=== PATIENT | male | born 1980 | race Caucasian/White ===

== ENCOUNTER → 2020-07-20 | Outpatient (CLI) | payer OTHER ==
--- NOTE | 2020-07-20 12:03 | CONS ---
CONSULTATION DATE OF SERVICE: 07/20/2020 This 40-year-old gentleman has been evaluated in [facility] for possible obstructive sleep apnea-hypopnea syndrome. HISTORY OF PRESENT ILLNESS SLEEP-WAKE EVALUATION: Patient's usual sleep schedule on weekdays from 9 a.m. until 5 p.m. and on weekends from 9 p.m. until . 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 During the day, he takes from one to three naps usually early afternoon. Does not feel refreshed after nap. Does not see vivid dreams. He wakes up from sleep up to seven times. He has 3 episodes of nocturia. According to his , he snores and has witnessed episodes of stopped breathing during the sleep. [place] Sleepiness Scale significantly increased to 12. PAST MEDICAL HISTORY: Positive for acid reflux and back problems. PAST SURGICAL HISTORY: Cholecystectomy. MEDICATIONS: Baclofen 20 mg 3 times a day, omeprazole 40 mg once a day, 150 mg once a day, Chantix 1 mg, ibuprofen 800 mg up to 3 times a day. SOCIAL HISTORY: Negative for using alcohol. Positive for smoking about one pack a day for 25 years, trying to quit. FAMILY HISTORY: Heart problems, arthritis, snoring, cancer, thyroid problems, acid reflux. REVIEW OF SYSTEMS: Multiple awakenings from sleep, sleepiness, snoring. PHYSICAL EXAMINATION: GENERAL: gentleman without distress. VITAL SIGNS: BP 144/89, HR 98, RR 15, height 6 inches 0 inches, weight 285 pounds, BMI 38.6, temperature 98.4, oxygen saturation at room air 98%. HEENT: PERRLA, EOMI. Oropharynx extremely low position of soft palate. Mallampati 4. NECK: Wide neck 18-1/2 inches in circumference. LUNGS: Clear to percussion and to auscultation. Good air exchange. No wheezing or rhonchi. HEART: S1, S2 regular. No murmurs, gallops, or rubs. ABDOMEN: Obese. EXTREMITIES: No clubbing or cyanosis. METAL FABRICATOR: Awake, alert, and oriented X3. Cranial nerves 2 to 7 intact. There is no fasciculation or atrophy. noted. No focal deficits observed. IMPRESSION: 1. Snoring witnessed episodes of stopped breathing during sleep, extremely low position of soft palate, Mallampati 4, wide neck 18-1/2 inches in circumference, sleepiness, obstructive sleep apnea-hypopnea syndrome. 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 3. History of acid reflux. 4. Back problems. 5. Status post cholecystectomy. PLAN: 1. Polysomnography for evaluation of patient's breathing during sleep. 2. CPAP/BiPAP titration if sleep study confirms obstructive sleep apnea-hypopnea syndrome. 3. Preferable position during sleep on the side. 4. No driving if patient feels any sleepiness. 5. I will see patient for follow up visit to explain results of testing and following plan. Thank you very much for referring this patient for consultation. Sincerely, Christopher Gibbs MD, PhD, FAASM Diplomat of [place] [employer] [employer] Teletypesetter Monitor of [facility] [place] MMODL / IJN: [id number] /
== END | disposition home or self-care (01) ==
LOC: SLEEP 10:48
PROVIDERS: ATTEND Internal Medicine
DX: G47.33 Obstructive sleep apnea (adult) (pediatric) (principal); M43.9 Deforming dorsopathy, unspecified; Z87.19 Personal history of other diseases of the digestive system; Z79.891 Long term (current) use of opiate analgesic; Z79.899 Other long term (current) drug therapy; Z90.49 Acquired absence of other specified parts of digestive tract
CPT/HCPCS: 99211

== ENCOUNTER 2020-08-01 07:00 | Outpatient (CLI) | payer OTHER ==
--- NOTE | 2020-08-03 22:45 | SLS ---
SLEEP STUDY POLYSOMNOGRAPHY REPORT: CLINICAL: Polysomnography has been done for evaluation of the patient's breathing during sleep. PROCEDURE: The standard montage for clinical polysomnography included the electroencephalogram, the electroculogram, the mentalis surface electromyography and Lead II cardiography. The respiratory battery consisted of measurements of nasal/buccal air flow, pressure transducer measurements from nose, thoracic, and/or abdominal effort and intercostal surface electromyography. Video monitoring has been done to check for any parasomnia events. Nocturnal oxyhemoglobin saturations were obtained by finger oximetry. RESULTS: During diagnostic sleep study, sleep efficiency was practically normal at 87%. Latency to sleep onset was short at 2.8 minutes. Latency to first REM period also was normal. Sleep architecture showed increasing stage N1 to 18.4%, short delta sleep of 2.8% and normal amount of REM sleep at 20.3%. Respiratory channel showed 26 obstructive apneas, one mixed apnea, one central apnea, and 241 hypopneas, with total apnea-hypopnea index 43.3 with oxygen desaturation to 78.9%. Total oxygen level was below or equal to 88% for 10.1 minutes. Pulse rate was in the range between 49 and 101 by computer calculation. No periodic limb movements have been documented. IMPRESSION: 1. Severe obstructive sleep apnea-hypopnea syndrome. 2. No significant periodic limb movements have been documented. 3. Significant oxygen desaturation. Please see other impressions from consultation. PLAN: 1. Titration with positive air pressure for correction of respiratory abnormalities during sleep. 2. Losing weight. 3. Sleep hygiene with regular time in bed for at least 8 hours. 4. No driving if feeling sleepiness. Thank you very much for allowing me to participate in the management of your patient. Sincerely, Christopher Gibbs MD, PhD, FAASM Diplomat of [place] [employer] [employer] Plans Examiner of [facility] [place] MMODL / IJN: [id number] /
== END 2020-08-01 16:00 | disposition home or self-care (01) ==
LOC: SLEEP 07:00
PROVIDERS: ATTEND Internal Medicine
DX: G47.33 Obstructive sleep apnea (adult) (pediatric) (principal)
CPT/HCPCS: 95810

== ENCOUNTER → 2022-01-31 | Outpatient (CLI) | payer OTHER ==
--- NOTE | 2022-01-31 14:34 | P.PN ---
Subjective DATE: 01/31/2022 FOLLOW UP VISIT. Patient with obstructive sleep apnea hypopnea syndrome return to sleep center for follow-up visit. Patient had sleep study which documented severe obstructive sleep apnea hypopnea syndrome. Patient was initiated on PAP therapy and today is first visit after treatment was started. Patient has difficulties with the usage of CPAP equipment. When he uses it he still continued to have a awakenings from sleep. [place] sleepiness scale is in a very high range 20 to. I checked information from PAP unit. This is dream station 1 unit from [employer], which is on recall. PAP unit pressure 5-17 cm H2O. patient was not able to use Pap equipment. MEDICATIONS:1. Ambien 10 mg once a day 2. Omeprazole 40 mg once a day 3. Baclofen 20 mg as needed During physical exam: GENERAL: A pleasant patient without any distress. VITAL SIGNS: BP 179/99, HR 99, RR 16, weight 318.0, temperature 97.6, oxygen saturation at room air 98%. HEENT: PERRLA, EOMI.low position of soft palate, Mallapati 4 . NECK: Supple. No JVD. LUNGS: Clear to percussion and to auscultation. Good air exchange. No wheezing or rhonchi. HEART: S1, S2 regular. ABDOMEN: Soft and nontender. Obese EXTREMITIES: No clubbing or cyanosis. SPINDLE CARVER: Awake, alert, and oriented x3. No focal deficit. Impressions: 1. Obstructive sleep apnea-hypopnea syndrome in severe range apnea-hypopnea index 43.3.. Patient did not use she is CPAP unit recently. He continued to diaz ve multiple awakenings from sleep with using Pap equipment. His CPAP unit is on recall 2. Obesity. 3. Back problems. 4. Acid reflux. 5. Hypertension in the office. 6. Status post cholecystectomy. 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 Plan: 1. Pap titration for evaluation of effective pressure for correction of respiratory abnormalities during sleep. Patient has difficulties with usage of auto Pap, continued to have multiple awakenings from sleep. 2. Pap unit is on recall, needs to be replaced. 3. Follow up visit after Pap titration. 4. Watching and losing weight. 5. Sleep hygiene with regular time in bed for at least 8 hours. 6. Precautions related to driving. No driving if feel any sleepiness. Thank you very much for allowing me to participate in the management of your patient. Christopher Gibbs MD, PhD, FAASM. Diplomat of [place] [employer], Sleep Medicine Board by [place] [employer] Tinsmith Helper of [facility] [place]
== END ==
LOC: SLEEP 13:03
PROVIDERS: ATTEND Internal Medicine
DX: G47.33 Obstructive sleep apnea (adult) (pediatric) (principal); E66.9 Obesity, unspecified; M53.80 Other specified dorsopathies, site unspecified; K21.9 Gastro-esophageal reflux disease without esophagitis; I10 Essential (primary) hypertension; Z90.49 Acquired absence of other specified parts of digestive tract; Z99.89 Dependence on other enabling machines and devices
CPT/HCPCS: 99212

== ENCOUNTER 2023-03-17 21:18 | Inpatient (IN) | payer OTHER ==
[2023-03-17] MEDS ORDERED: SODIUM CHLORIDE 0.9% 1,000 ML IV STA (21:35)
--- NOTE | 2023-03-17 21:35 | ED ---
Abdominal Pain HPI - General Chief Complaint: Abdominal Pain Stated Complaint: Diverticulitis Time Seen by Provider: 03/17/23 21:20 Source: patient, EMS Mode of arrival: EMS Limitations: no limitations - History of Present Illness Initial Comments: Sharif is a 43 yo M who presents to the ER as a transfer from [place] for diverticulitis. Patient reports that he developed lower abdominal pain on , he's not had a bowel movement since that time he is still passing gas. Pain is progressively worse and today became unbearable he sought care at [facility] emergency Department were blood work and CT imaging were performed. Blood work revealed leukocytosis with white count 14.[address] revealed sigmoid diverticulitis with perforation and moderate amount of air tracking around the lower abdomen. She was given Zosyn his pain was managed with morphine and Dilaudid he was transferred here for surgical evaluation. - Related Data Home Medications Medication Instructions Recorded Confirmed Acetaminophen Tab [Tylenol Tab] 1,000 mg PO Q6HR PRN 03/17/23 03/17/23 Atorvastatin [Lipitor] 40 mg PO DAILY 03/17/23 03/17/23 Baclofen 10 mg PO TID PRN 03/17/23 03/17/23 Ibuprofen [Motrin] 800 mg PO TID-W/MEALS PRN 03/17/23 03/17/23 Omeprazole 40 mg PO DAILY 03/17/23 03/17/23 Varenicline Tartrate 1 mg PO BID 03/17/23 03/17/23 lisinopriL [Zestril] 5 mg PO DAILY 03/17/23 03/17/23 Allergies Allergy/AdvReac Type Severity Reaction Status Date / Time No Known Allergies Allergy Verified 03/17/23 21:56 Review of Systems ROS Statement: Those systems with pertinent positive or pertinent negative responses have been documented in the HPI. ROS Other: All systems not noted in ROS Statement are negative. Past Medical History Past Medical History: No Reported History Past Surgical History: Cholecystectomy Smoking Status: Current every day smoker Past Alcohol Use History: Rare Past Drug Use History: None Reported General Exam - General Exam Comments Initial Comments: Physical Exam GENERAL: Obese, appears uncomfortable HENT: Normocephalic, Atraumatic. EYES: PERRL, EOMI PULMONARY: Unlabored respirations. No audible rales rhonchi or wheezing was noted. CARDIOVASCULAR: Tachycardic, regular ABDOMEN: Distended, tender in LLQ SKIN: Skin is clear with no lesions or rashes and otherwise unremarkable. : Deferred NEUROLOGIC: Patient is alert and oriented x3 Moving all extremities spontaneously MUSCULOSKELETAL: Normal extremities with adequate strength and full range of motion. No lower extremity swelling or edema. No calf tenderness. PSYCHIATRIC: Normal psychiatric evaluation. Limitations: no limitations Course Vital Signs 03/17/23 21:21 Temperature 98.6 F Pulse Rate 110 H Respiratory 18 Rate Blood Pressure 139/88 O2 Sat by Pulse 97 Oximetry Medical Decision Making - Medical Decision Making Patient was seen and evaluated upon arrival. Patient is resting comfortably only complaint is thirst Outside labs and imaging were reviewed imaging was uploaded to our system Repeat labs were ordered in anticipation of a large Patient IV fluids, nothing by mouth diet and pain management ordered Patient care was discussed with Dr. Perez who agrees with plan for pain management observation overnight and surgical evaluation the morning Was pt. sent in by a medical professional or institution (, PA, DIABETES TERRITORY MANAGER, urgent care, hospital, or assisted...) When possible be specific @ -Yes, sent from [facility] Did you speak to anyone other than the patient for history (EMS, parent, family, police, friend...)? What history was obtained from this source @ -EMS Did you review nursing and triage notes (agree or disagree)? Why? @ -I reviewed and agree with nursing and triage notes Were old charts reviewed (outside hosp., previous admission, EMS record, old EKG, old radiological studies, urgent care reports/EKG's, assisted records)? Report findings @ -Chart from outside hospital was reviewed Differential Diagnosis (chest pain, altered mental status, abdominal pain women, abdominal pain men, vaginal bleeding, weakness, fever, dyspnea, syncope, headache, dizziness, GI bleed, back pain, seizure, CVA, palpatations, mental health, musculoskeletal)? @ -not applicable EKG interpreted by me (3pts min.). @ -As above X-rays interpreted by me (1pt min.). @ -None done CT interpreted by me (1pt min.). @ -Outside CT was reviewed as diverticulitis with moderate free air U/S interpreted by me (1pt. min.). @ -None done What testing was considered but not performed or refused? (CT, X-rays, U/S, labs)? Why? @ -None What meds were considered but not given or refused? Why? @ -None Did you discuss the management of the patient with other professionals (professionals i.e. , PA, DIABETES TERRITORY MANAGER, lab, RT, psych nurse, certified social workers in health care, door hanger, teacher, public affairs officer, classification case manager)? Give summary @ -Discussed with admitting physician Was smoking cessation discussed for >3mins.? @ -No Was critical care preformed (if so, how long)? @ -No Were there social determinants of health that impacted care today? How? (Homelessness, low income, unemployed, alcoholism, drug addiction, transportation, low edu. Level, literacy, decrease access to med. care, group home, rehab)? @ -No Was there de-escalation of care discussed even if they declined (Discuss DNR or withdrawal of care, Hospice)? DNR status @ -No What co-morbidities impacted this encounter? (DM, HTN, Smoking, COPD, CAD, Cancer, CVA, ARF, Chemo, Hep., AIDS, mental health diagnosis, sleep apnea, morbid obesity)? @ -None Was patient admitted / discharged? Hospital course, mention meds given and route, prescriptions, significant lab abnormalities, going to OR and other pertinent info. @ -Admit Undiagnosed new problem with uncertain prognosis? @ -No Drug Therapy requiring intensive monitoring for toxicity (Heparin, Nitro, Insulin, Cardizem)? @ -No Were any procedures done? @ -No Diagnosis/symptom? @ -Sigmoid diverticulitis with perforation Acute, or Chronic, or Acute on Chronic? @ -Acute Uncomplicated (without systemic symptoms) or Complicated (systemic symptoms)? @ -Complicated Side effects of treatment? @ -No Exacerbation, Progression, or Severe Exacerbation? @ -No Poses a threat to life or bodily function? How? (Chest pain, [place], [place], pneumonia, PE, COPD, DKA, ARF, appy, cholecystitis, CVA, Diverticulitis, Homicidal, Suicidal, threat to staff... and all critical care pts) @ -Can lead to sepsis and - Lab Data Lab Results 03/17/23 Range/Units 21:45 Blood Type Recheck No Previous Record Bld Type Recheck Status CABO Indicated Spec Expiration Date 03/20/2023 - 2344 Disposition Clinical Impression: Perforation of sigmoid colon due to diverticulitis Disposition: ADMITTED IP TO THIS HOSP Condition: Stable Is patient prescribed a controlled substance at d/c from ED?: No Referrals: Zev Cabral MD [Primary Care Provider] - 1-2 days
[2023-03-17] MEDS ORDERED: NALOXONE 0.4 MG/ML 1 ML VIAL IV PRN (22:09)
[2023-03-17] MEDS ORDERED: ONDANSETRON 4 MG/2 ML VIAL IVP PRN (22:09)
[2023-03-17] MEDS: HYDROmorphone 1 MG/ML 1 ML SYRINGE IVP PRN (22:21)
[2023-03-17] MEDS: PANTOPRAZOLE 40 MG/10 ML VIAL IV SCH (22:21)
[2023-03-17 22:27] LABS: Basophils # (A) 0.1 k/uL (0-0.2); Basophils % (A) 0 %; Eosinophils # (A) 0.1 k/uL (0-0.7); Eosinophils % (A) 1 %; HCT 39.8 % (39.0-53.0); HGB 13.8 gm/dL (13.0-17.5); Lymphocytes # (A) 2.8 k/uL (1.0-4.8); Lymphocytes % (A) 21 %; MCH 32.1 pg (25.0-35.0); MCHC 34.7 g/dL (31.0-37.0); MCV 92.5 fL (80.0-100.0); Mean Platelet Volume 7.4; Monocytes # (A) 1.1 k/uL (0-1.0); Monocytes % (A) 8 %; Neutrophils # (A) 9.1 k/uL (1.3-7.7); Neutrophils % (A) 68 %; Platelet Count 256 k/uL (150-450); RBC 4.31 m/uL (4.30-5.90); RDW 12.7 % (11.5-15.5); WBC 13.5 k/uL (3.8-10.6)
[2023-03-17 22:42] LABS: ALT 42 U/L (4-49); AST 35 U/L (17-59); African American GFR (CKD) >90 (>60 ml/min/1.73 sqM); Albumin 3.2 g/dL (3.5-5.0); Alkaline Phosphatase 73 U/L (38-126); Anion Gap 9 mmol/L; Blood Urea Nitrogen 9 mg/dL (9-20); Calcium 8.4 mg/dL (8.4-10.2); Carbon Dioxide 22 mmol/L (22-30); Chloride 106 mmol/L (98-107); Glucose 111 mg/dL (74-99); Non-African American GFR(CKD) >90 (>60 ml/min/1.73 sqM); Potassium 3.7 mmol/L (3.5-5.1); Sodium 137 mmol/L (137-145); Total Bilirubin 1.4 mg/dL (0.2-1.3); Total Protein 6.2 g/dL (6.3-8.2)
[2023-03-18] MEDS: HYDROmorphone 1 MG/ML 1 ML SYRINGE IVP PRN ×5 (04:33→21:00)
[2023-03-18] MEDS: PANTOPRAZOLE 40 MG/10 ML VIAL IV SCH (08:29)
[2023-03-18] MEDS ORDERED: ACETAMINOPHEN IV (For NPO) 1,000 MG in EMPTY BAG 1 BAG IVPB PRN (08:45)
[2023-03-18] MEDS: SODIUM CHLORIDE 0.9% 1,000 ML IV SCH ×2 (08:58→19:00)
[2023-03-18] MEDS: PIPERACILLIN-TAZOBACTAM 3.375 GM in SODIUM CHLORIDE 0.9% 100 ML IVPB SCH ×2 (09:22→16:09)
[2023-03-18 10:06] LABS: ALT 39 U/L (4-49); AST 24 U/L (17-59); African American GFR (CKD) >90 (>60 ml/min/1.73 sqM); Albumin 3.2 g/dL (3.5-5.0); Albumin/Globulin Ratio 1.1; Alkaline Phosphatase 70 U/L (38-126); Anion Gap 10 mmol/L; Blood Urea Nitrogen 11 mg/dL (9-20); Calcium 8.2 mg/dL (8.4-10.2); Carbon Dioxide 21 mmol/L (22-30); Chloride 103 mmol/L (98-107); Globulin 2.9 g/dL; Glucose 126 mg/dL (74-99); Non-African American GFR(CKD) >90 (>60 ml/min/1.73 sqM); Potassium 3.7 mmol/L (3.5-5.1); Sodium 134 mmol/L (137-145); Total Bilirubin 1.3 mg/dL (0.2-1.3); Total Protein 6.1 g/dL (6.3-8.2)
[2023-03-18 10:15] LABS: Basophils % (A) 0 %; Eosinophils # (A) 0.1 k/uL (0-0.7); Eosinophils % (A) 1 %; HCT 38.2 % (39.0-53.0); HGB 12.9 gm/dL (13.0-17.5); Lymphocytes # (A) 2.1 k/uL (1.0-4.8); Lymphocytes % (A) 16 %; MCH 31.7 pg (25.0-35.0); MCHC 33.8 g/dL (31.0-37.0); MCV 93.7 fL (80.0-100.0); Mean Platelet Volume 7.5; Monocytes # (A) 1.2 k/uL (0-1.0); Monocytes % (A) 9 %; Neutrophils # (A) 9.3 k/uL (1.3-7.7); Neutrophils % (A) 72 %; Platelet Count 231 k/uL (150-450); RBC 4.08 m/uL (4.30-5.90); RDW 12.7 % (11.5-15.5)
[2023-03-18] MEDS ORDERED: BACLOFEN 10 MG TAB PO PRN (12:09)
--- NOTE | 2023-03-18 13:00 | P.GSHP ---
History of Present Illness H&P Date: 03/18/23 CHIEF COMPLAINT: Abdominal pain HISTORY OF PRESENT ILLNESS: This is a 43-year-old male who presented to [facility] with complaints of left lower quadrant abdominal pain that started 4 days ago. He had a computed tomography scan completed at the facility that reported acute sigmoid diverticulitis complicated by perforation and tracking mesenteric free air in the adjacent lower abdomen. No abscess formation. Patient was therefore transferred to [facility] for surgical evaluation. Patient denies any prior history of diverticulitis. He does have a family history of diverticulitis. Patient reports his last colonoscopy was in November 2022 with polyp noted. Patient is having flatus. He has been having constipation last bowel movement on . Past surgical history does i nclude a cholecystectomy. Patient did have low-grade temps this morning. He has been mildly tachycardic and with leukocytosis. PAST MEDICAL HISTORY: Hypertension, hyperlipidemia PAST SURGICAL HISTORY: See below MEDICATIONS: See below ALLERGIES: See below SOCIAL HISTORY: No illicit drug use. REVIEW OF SYSTEMS: CONSTITUTIONAL: Denies fever or chills. HEENT: Denies blurred vision, vision changes, or eye pain. Denies hemoptysis CARDIOVASCULAR: Denies chest pain or pressure. RESPIRATORY: No shortness of breath. GASTROINTESTINAL: See HPI for pertinent findings HEMATOLOGIC: Denies bleeding disorders. GENITOURINARY: Denies any blood in urine or increased urinary frequency. SKIN: Denies pruitis. Denies rash. PHYSICAL EXAM: VITAL SIGNS: Reviewed GENERAL: Well-developed in no acute distress. HEENT: No sclera icterus. Extraocular movements grossly intact. Moist buccal mucosa. Head is atraumatic, normocephalic. No nasal drainage. ABDOMEN: Soft. Nondistended. Tenderness with palpation of the left lower quadrant and lower mid abdomen NEUROLOGIC: Alert and oriented. Cranial nerves II through XII grossly intact. LABORATORY DATA: WBC 13 Hgb 12.9 platelets 231 Sodium 134 potassium 3.7 creatinine 0.82 IMAGING: computed tomography scan completed at the facility that reported acute sigmoid diverticulitis complicated by perforation and tracking mesenteric free air in t he adjacent lower abdomen. No abscess formation. Hepatomegaly at 22.5 cm with moderate to severe hepatic steatosis. ASSESSMENT: 1. Acute sigmoid diverticulitis with perforation PLAN: -Continue to monitor patient closely -Repeat CBC in a.m. -Keep patient nothing by mouth -Resume IV antibiotics -Continue IV fluids -IV Tylenol ordered as needed for fever -DVT prophylaxis subcu heparin and GI prophylaxis IV protonix Physician Senior Web Services Developer note has been reviewed by physician. Signing provider agrees with the documented findings, assessment, and plan of care. I have personally seen and examined the patient, reviewed the VIGOUREUX PRINTER /PAs history, exam and MDM and agree with the assessment and plan as written. Based on total visit time, I have performed more than 50% of the visit. As above: Patient says his pain is down to 3 out of 10 today. It was 8 out of 10 yesterday. Was tachycardic overnight. Low-grade fever noted. Computed tomography scan reviewed. Findings discussed in detail with the patient and his . The patient has a collection of extraluminal air within the mesentery of the sigmoid colon. Discussed that we can try initially treating this nonoperatively with antibiotics and bowel rest. If patient's symptoms do not improve or worsen will require exploratory laparotomy with sigmoid colectomy and end colostomy. Patient is agreeable with plan. Past Medical History Past Medical History: No Reported History History of Any Multi-Drug Resistant Organisms: None Reported Past Surgical History: Cholecystectomy Smoking Status: Current every day smoker Past Alcohol Use History: Rare Past Drug Use History: None Reported Medications and Allergies Home Medications Medication Instructions Recorded Confirmed Type Acetaminophen Tab [Tylenol Tab] 1,000 mg PO Q6HR PRN 03/17/23 03/17/23 History Atorvastatin [Lipitor] 40 mg PO DAILY 03/17/23 03/17/23 History Baclofen 10 mg PO TID PRN 03/17/23 03/17/23 History Ibuprofen [Motrin] 800 mg PO TID-W/MEALS PRN 03/17/23 03/17/23 History Omeprazole 40 mg PO DAILY 03/17/23 03/17/23 History Varenicline Tartrate 1 mg PO BID 03/17/23 03/17/23 History lisinopriL [Zestril] 5 mg PO DAILY 03/17/23 03/17/23 History Allergies Allergy/AdvReac Type Severity Reaction Status Date / Time No Known Allergies Allergy Verified 03/17/23 21:56 Surgical - Exam Vital Signs Temp Pulse Resp BP Pulse Ox 98.6 F 110 H 18 139/88 97 03/17/23 21:21 03/17/23 21:21 03/17/23 21:21 03/17/23 21:21 03/17/23 21:21 Results - Labs 03/18/23 09:13 03/18/23 09:13 Abnormal Lab Results - Last 24 Hours (Table) 03/17/23 03/17/23 Range/Units 21:53 21:53 WBC 13.5 H (3.8-10.6) k/uL Neutrophils # 9.1 H (1.3-7.7) k/uL Monocytes # 1.1 H (0-1.0) k/uL Glucose 111 H (74-99) mg/dL Total Bilirubin 1.4 H (0.2-1.3) mg/dL Total Protein 6.2 L (6.3-8.2) g/dL Albumin 3.2 L (3.5-5.0) g/dL Diabetes panel 03/17/23 Range/Units 21:53 Sodium 137 (137-145) mmol/L Potassium 3.7 (3.5-5.1) mmol/L Chloride 106 (98-107) mmol/L Carbon Dioxide 22 (22-30) mmol/L BUN 9 (9-20) mg/dL Creatinine 0.90 (0.66-1.25) mg/dL Glucose 111 H (74-99) mg/dL Calcium 8.4 (8.4-10.2) mg/dL AST 35 (17-59) U/L ALT 42 (4-49) U/L Alkaline Phosphatase 73 (38-126) U/L Total Protein 6.2 L (6.3-8.2) g/dL Albumin 3.2 L (3.5-5.0) g/dL Calcium panel 03/17/23 Range/Units 21:53 Calcium 8.4 (8.4-10.2) mg/dL Albumin 3.2 L (3.5-5.0) g/dL Pituitary panel 03/17/23 Range/Units 21:53 Sodium 137 (137-145) mmol/L Potassium 3.7 (3.5-5.1) mmol/L Chloride 106 (98-107) mmol/L Carbon Dioxide 22 (22-30) mmol/L BUN 9 (9-20) mg/dL Creatinine 0.90 (0.66-1.25) mg/dL Glucose 111 H (74-99) mg/dL Calcium 8.4 (8.4-10.2) mg/dL Adrenal panel 03/17/23 Range/Units 21:53 Sodium 137 (137-145) mmol/L Potassium 3.7 (3.5-5.1) mmol/L Chloride 106 (98-107) mmol/L Carbon Dioxide 22 (22-30) mmol/L BUN 9 (9-20) mg/dL Creatinine 0.90 (0.66-1.25) mg/dL Glucose 111 H (74-99) mg/dL Calcium 8.4 (8.4-10.2) mg/dL Total Bilirubin 1.4 H (0.2-1.3) mg/dL AST 35 (17-59) U/L ALT 42 (4-49) U/L Alkaline Phosphatase 73 (38-126) U/L Total Protein 6.2 L (6.3-8.2) g/dL Albumin 3.2 L (3.5-5.0) g/dL
[2023-03-18] MEDS: VARENICLINE 1 MG TAB PO SCH ×2 (13:32→21:00)
[2023-03-18] MEDS: ATORVASTATIN 40 MG TAB PO SCH (13:32)
[2023-03-18] MEDS: lisinopriL 5 MG TAB PO SCH (13:32)
[2023-03-18] MEDS: NICOTINE 21MG/24HR PATCH TRANSDERM SCH (13:32)
[2023-03-18] MEDS: PANTOPRAZOLE 40 MG/10 ML VIAL IVP SCH (13:32)
--- NOTE | 2023-03-18 14:46 | P.CONS ---
History of Present Illness - Reason for Consult Consult date: 03/18/23 Medical management Requesting physician: Ha Perez - Chief Complaint Abdominal pain - History of Present Illness This is a pleasant 43-year-old patient, follows with Dr. Corey Cabral. Patient is a complete by his . About 4 days ago patient started having lower abdominal pain. Progressively got worse. Nausea vomiting. 7 having irregular bowel movements. Pain became rather severe and significant. Presented to [facility] yesterday. Computed tomography scan showed acute bout of colitis with perforation with a tracking to the mesentery. Transferred down here. Pain significantly present. Started on IV Zosyn. Up in a chair. Having low-grade fevers. Review of systems: GEN.: Tired, low-grade fever EYES: None HEENT: None NECK: None RESPIRATORY: None CARDIOVASCULAR: None GASTROINTESTINAL: As above GENITOURINARY: None MUSCULOSKELETAL: None LYMPHATICS: None HEMATOLOGICAL: None PSYCHIATRY: None NEUROLOGICAL: None Past medical history to include: GERD, hypertension, hyperlipidemia, low back pain with spasms Social history: . . Alcohol rarely. Smokes a pack a day for last 27 years. 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 EYES: Pupils equal. Conjunctiva normal. HEENT: External appearance of nose and ears normal, oral cavity grossly normal. NECK: JVD not raised; masses not palpable. HEART: First and second heart sounds are normal; no edema. LUNGS: Respiratory rate normal; clear to auscultation. ABDOMEN: Soft, left lower quadrant tenderness, no guarding rigidity, liver spleen not palpable, no masses palpable. PSYCH: [Alert and oriented x3; mood and affect tired l. MUSCULOSKELETAL:No Clubbing/cyanosis;muscles-grossly intact NEUROLOGICAL: Cranial nerves grossly intact; no facial asymmetry, power and sensation grossly intact. LYMPHATICS: No lymph nodes palpable in the axilla and neck INVESTIGATIONS, reviewed in the clinical context: March 18: White count 13 hemoglobin 12.9 platelets 231 sodium 134 potassium 3.7 creatinine 0.82 albumin 3.2 Computed tomography scan abdomen with contrast from [facility] [place]: Acute diverticulitis with perforation with a tracking down to the mesentery. Assessment and plan: -Acute diverticulitis with perforation with a tracking down to the mesentery. Symptoms present for 4 days prior to presentation. Associate with sepsis Nothing by mouth except for ice chips and medications IV Zosyn, IV Flagyl -Morbid obesity BMI 41.4 Outpatient, weight loss measures -Essential hypertension Lisinopril 5 mg a day -GERD PPI -Chronic lower back pain with muscle spasms Baclofen when necessary. -Hyperlipidemia Lipitor 40 mg -Chronic nicotine dependence, cigarette smoker Nicotine patch. Chantix. Care was discussed with the patient and the the bedside. Questions answered. . Thank you Past Medical History Past Medical History: No Reported History History of Any Multi-Drug Resistant Organisms: None Reported Past Surgical History: Cholecystectomy Smoking Status: Current every day smoker Past Alcohol Use History: Rare Past Drug Use History: None Reported Medications and Allergies Home Medications Medication Instructions Recorded Confirmed Type Acetaminophen Tab [Tylenol Tab] 1,000 mg PO Q6HR PRN 03/17/23 03/17/23 History Atorvastatin [Lipitor] 40 mg PO DAILY 03/17/23 03/17/23 History Baclofen 10 mg PO TID PRN 03/17/23 03/17/23 History Ibuprofen [Motrin] 800 mg PO TID-W/MEALS PRN 03/17/23 03/17/23 History Omeprazole 40 mg PO DAILY 03/17/23 03/17/23 History Varenicline Tartrate 1 mg PO BID 03/17/23 03/17/23 History lisinopriL [Zestril] 5 mg PO DAILY 03/17/23 03/17/23 History Allergies Allergy/AdvReac Type Severity Reaction Status Date / Time No Known Allergies Allergy Verified 03/17/23 21:56 Physical Exam Vitals: Vital Signs Temp Pulse Pulse Resp BP BP Pulse Ox 03/18/23 07:46 100.2 F H 110 H 20 120/78 95 03/18/23 04:30 109 H 18 116/78 95 03/18/23 01:00 110 H 20 109/54 95 03/17/23 21:21 98.6 F 110 H 18 139/88 97 Intake and Output 03/17/23 03/18/23 03/18/23 22:59 06:59 14:59 Other: Weight 138.346 kg 138.346 kg Results CBC & Chem 7: 03/18/23 09:13 03/18/23 09:13 Labs: Abnormal Lab Results - Last 24 Hours (Table) 03/17/23 03/17/23 03/18/23 Range/Units 21:53 21:53 09:13 WBC 13.5 H 13.0 H (3.8-10.6) k/uL RBC 4.08 L (4.30-5.90) m/uL Hgb 12.9 L (13.0-17.5) gm/dL Hct 38.2 L (39.0-53.0) % Neutrophils # 9.1 H 9.3 H (1.3-7.7) k/uL Monocytes # 1.1 H 1.2 H (0-1.0) k/uL Sodium (137-145) mmol/L Carbon Dioxide (22-30) mmol/L Glucose 111 H (74-99) mg/dL Calcium (8.4-10.2) mg/dL Total Bilirubin 1.4 H (0.2-1.3) mg/dL Total Protein 6.2 L (6.3-8.2) g/dL Albumin 3.2 L (3.5-5.0) g/dL 03/18/23 Range/Units 09:13 WBC (3.8-10.6) k/uL RBC (4.30-5.90) m/uL Hgb (13.0-17.5) gm/dL Hct (39.0-53.0) % Neutrophils # (1.3-7.7) k/uL Monocytes # (0-1.0) k/uL Sodium 134 L (137-145) mmol/L Carbon Dioxide 21 L (22-30) mmol/L Glucose 126 H (74-99) mg/dL Calcium 8.2 L (8.4-10.2) mg/dL Total Bilirubin (0.2-1.3) mg/dL Total Protein 6.1 L (6.3-8.2) g/dL Albumin 3.2 L (3.5-5.0) g/dL
[2023-03-18] MEDS: metroNIDAZOLE-NS PMX 500 MG in SALINE 1 100ML.BAG IVPB SCH (16:09)
[2023-03-18] MEDS: HEPARIN SODIUM,PORCINE 5,000 UNIT/ML 1 ML VIAL SQ SCH (20:59)
[2023-03-18] MEDS: ONDANSETRON 4 MG/2 ML VIAL IVP PRN (21:43)
[2023-03-19] MEDS: SODIUM CHLORIDE 0.9% 1,000 ML IV SCH ×3 (01:16→16:03)
[2023-03-19] MEDS: PIPERACILLIN-TAZOBACTAM 3.375 GM in SODIUM CHLORIDE 0.9% 100 ML IVPB SCH ×4 (01:17→23:44)
[2023-03-19] MEDS: metroNIDAZOLE-NS PMX 500 MG in SALINE 1 100ML.BAG IVPB SCH ×4 (01:17→23:44)
[2023-03-19] MEDS: HYDROmorphone 1 MG/ML 1 ML SYRINGE IVP PRN ×2 (02:21→06:05)
[2023-03-19] MEDS: ONDANSETRON 4 MG/2 ML VIAL IVP PRN ×3 (02:53→23:46)
[2023-03-19] MEDS ORDERED: PANTOPRAZOLE 40 MG TABLET PO SCH (07:30)
[2023-03-19] MEDS: VARENICLINE 1 MG TAB PO SCH ×2 (08:20→21:00)
[2023-03-19] MEDS: PANTOPRAZOLE 40 MG/10 ML VIAL IVP SCH (08:21)
[2023-03-19] MEDS: NICOTINE 21MG/24HR PATCH TRANSDERM SCH (08:21)
[2023-03-19] MEDS: ATORVASTATIN 40 MG TAB PO SCH (08:21)
[2023-03-19] MEDS: lisinopriL 5 MG TAB PO SCH (08:21)
[2023-03-19] MEDS: HEPARIN SODIUM,PORCINE 5,000 UNIT/ML 1 ML VIAL SQ SCH ×2 (08:21→21:01)
--- NOTE | 2023-03-19 08:53 | XR ---
EXAMINATION TYPE: XR abdomen 2V DATE OF EXAM: 03/19/2023 COMPARISON: 03/17/2023 HISTORY: Pain TECHNIQUE: One view abdominal series FINDINGS: The osseous structures are intact. The bowel gas pattern is nonspecific. Surgical clips right upper quadrant. Prominent small bowel loops are seen air-fluid level. Arthropathy of the hips. Vascular phl eboliths. Degenerative changes spine. IMPRESSION: 1. Few prominent small bowel loops are seen correlate for ileus or enteritis. Partial obstruction not excluded.
[2023-03-19 09:11] LABS: Basophils # (A) 0.05 X 10*3/uL (0.00-0.10); Basophils % (A) 0.5 %; Eosinophils % (A) 1.1 %; HCT 35.1 % (39.6-50.0); HGB 11.7 d/dL (13.0-17.0); Lymphocytes # (A) 1.86 X 10*3/uL (0.90-5.00); Lymphocytes % (A) 20.4 %; MCH 30.9 pg (27.0-32.0); MCHC 33.3 d/dL (32.0-37.0); MCV 92.6 FL (80.0-97.0); Monocytes % (A) 8.8 %; NRBC Per 100 WBC 0 X 10*3/uL (0.00-0.01); Neutrophils # (A) 6.27 X 10*3/uL (1.80-7.70); Neutrophils % (A) 68.9 %; Platelet Count 227 X 10*3/uL (140-440); RBC 3.79 X 10*6/uL (4.40-5.60); RDW 12.2 % (11.5-14.5); WBC 9.11 X 10*3/uL (4.50-10.00)
[2023-03-19 09:17] LABS: BUN/Creat Ratio 13.89 Ratio (12.00-20.00); Blood Urea Nitrogen 12.5 mg/dL (9.0-27.0); Calcium 7.9 mg/dL (8.7-10.3); Carbon Dioxide 24.5 mmol/L (21.6-31.8); Chloride 101 mmol/L (96-109); Glucose 109 mg/dL (70-110); Potassium 3.3 mmol/L (3.5-5.5); Sodium 136 mmol/L (135-145)
[2023-03-19] MEDS ORDERED: SCOPOLAMINE 1 MG/72 HR PATCH TRANSDERM SCH (09:45)
[2023-03-19] MEDS: ACETAMINOPHEN IV (For NPO) 1,000 MG in EMPTY BAG 1 BAG IVPB SCH ×3 (12:32→23:43)
[2023-03-19] MEDS ORDERED: POTASSIUM CHLORIDE ER 20 MEQ TAB.ER PO STA (13:16)
--- NOTE | 2023-03-19 13:20 | P.PN ---
Subjective Progress Note Date: 03/19/23 CHIEF COMPLAINT: Diverticulitis with perforation HISTORY OF PRESENT ILLNESS: Patient complaining of nausea, vomiting and dry heaves this morning. He does report that his pain is less and he rates it at a 4 out of 10. Yesterday pain was ranging around 8. He is having flatus. Denies any bowel movements. Afebrile. Heart rate 93 WBC is down from 13-9.11 potassium 3.3. Abdominal x-ray few prominent small bowel loops are seen correlate for ileus or enteritis. Partial obstruction not excluded. PHYSICAL EXAM: VITAL SIGNS: Reviewed. GENERAL: Well-developed in no acute distress. ABDOMEN: Soft. Nondistended. Left lower quadrant tenderness with palpation NEUROLOGIC: Alert and oriented. Cranial nerves II through XII grossly intact. ASSESSMENT: 1. Acute sigmoid diverticulitis with perforation PLAN: -Continue IV antibiotics -Continue bowel rest -IV Tylenol added for pain -Keep patient nothing by mouth except ice chips and meds -Add scopolamine patch for nausea and vomiting -Replace potassium -Continue IV fluids -Encourage patient to ambulate -Continue antiemetics -Continue pain management -GI prophylaxis Protonix and DVT prophylaxis subcu heparin Physician Combination Technician note has been reviewed by physician. Signing provider agrees with the documented findings, assessment, and plan of care. I have personally seen and examined the patient, reviewed the RN DIALYSIS /PAs history, exam and MDM and agree with the assessment and plan as written. Based on total visit time, I have performed more than 50% of the visit. As above: Patient is doing better today. Pain is minimal at this time. He is passing flatus and had a bowel movement. White blood cell count is normal now. Abdominal x-rays show no evidence of free air. Some small bowel dilation noted. Will begin clear liquids. Ambulate. Continue antibiotics. Reevaluate tomorrow. Objective - Vital Signs Vital signs: Vital Signs Temp 99.4 F 03/19/23 07:09 Pulse 93 03/19/23 07:09 Resp 18 03/19/23 07:09 BP 108/69 03/19/23 07:09 Pulse Ox 97 03/19/23 07:09 FiO2 Intake & Output 03/18/23 03/19/23 03/19/23 18:59 06:59 18:59 Intake Total 0 Balance 0 Weight 138.346 kg Intake: Oral 0 Other: Voiding Method Toilet # Voids 2 0 - Labs CBC & Chem 7: 03/19/23 05:46 03/19/23 05:46 Labs: Abnormal Lab Results - Last 24 Hours (Table) 03/19/23 03/19/23 Range/Units 05:46 05:46 RBC 3.79 L (4.40-5.60) X 10*6/uL Hgb 11.7 L (13.0-17.0) d/dL Hct 35.1 L (39.6-50.0) % MPV 9.0 L (9.5-12.2) FL Potassium 3.3 L (3.5-5.5) mmol/L Calcium 7.9 L (8.7-10.3) mg/dL
--- NOTE | 2023-03-19 17:31 | P.PN ---
Progress Note - Text Progress Note Date: 03/19/23 - Chief Complaint Abdominal pain Hospital course: This is a pleasant 43-year-old patient, follows with Dr. Corey Cabral. Patient is accompanied by his . About 4 days ago patient started having lower abdominal pain. Progressively got worse. Nausea vomiting. 7 having irregular bowel movements. Pain became rather severe and significant. Presented to [facility] yesterday. Computed tomography scan showed acute bout of colitis with perforation with a tracking to the mesentery. Transferred down here. Pain significantly present. Started on IV Zosyn. Up in a chair. Having low-grade fevers. March 19: Up in a chair. No bowel movement. No nausea vomiting. Sliding significant abdominal pain. No fever. at the bedside. Started on clear liquids by surgery. IV Zosyn and IV Flagyl. Active Medications Atorvastatin Calcium (Atorvastatin 40 Mg Tab) 40 mg PO DAILY [facility] Last Admin: 03/19/23 08:21 Dose: 40 mg Baclofen (Baclofen 10 Mg Tab) 10 mg PO TID PRN PRN Reason: Muscle Spasm Last Admin: 03/18/23 13:31 Dose: 10 mg Heparin Sodium (Porcine) (Heparin Sodium,Porcine 5,000 Unit/Ml 1 Ml Vial) 5,000 unit SQ Q12HR [facility] Last Admin: 03/19/23 08:21 Dose: 5,000 unit Hydromorphone HCl (Hydromorphone 1 Mg/Ml 1 Ml Syringe) 1 mg IVP Q3HR PRN PRN Reason: Moderate Pain (Scale 4 to 6) Last Admin: 03/19/23 06:05 Dose: 1 mg Piperacillin Sod/Tazobactam (Sod 3.375 gm/ Sodium Chloride) 100 mls @ 25 mls/hr IVPB Q8HR [facility]; Protocol Last Admin: 03/19/23 16:03 Dose: 25 mls/hr Sodium Chloride (Saline 0.9%) 1,000 mls @ 130 mls/hr IV .Q7H42M [facility] Last Admin: 03/19/23 16:03 Dose: 130 mls/hr Metronidazole 500 mg/ IV (Solution) 100 mls @ 100 mls/hr IVPB Q8HR [facility]; Protocol Last Admin: 03/19/23 16:04 Dose: 100 mls/hr Acetaminophen 1,000 mg/ IV (Solution) 100 mls @ 400 mls/hr IVPB Q6HR [facility] Stop: 03/20/23 06:01 Last Admin: 03/19/23 12:32 Dose: 400 mls/hr Lisinopril (Lisinopril 5 Mg Tab) 5 mg PO DAILY [facility] Last Admin: 03/19/23 08:21 Dose: 5 mg Naloxone HCl (Naloxone 0.4 Mg/Ml 1 Ml Vial) 0.2 mg IV Q2M PRN PRN Reason: Opioid Reversal Nicotine (Nicotine 21mg/24hr Patch) 1 patch TRANSDERM DAILY [facility] Last Admin: 03/19/23 08:21 Dose: 1 patch Ondansetron HCl (Ondansetron 4 Mg/2 Ml Vial) 4 mg IVP Q6HR PRN PRN Reason: Nausea And Vomiting Last Admin: 03/19/23 08:42 Dose: 4 mg Pantoprazole Sodium (Pantoprazole 40 Mg/10 Ml Vial) 40 mg IVP DAILY [facility] Last Admin: 03/19/23 08:21 Dose: 40 mg Scopolamine (Scopolamine 1 Mg/72 Hr Patch) 1 patch TRANSDERM Q72H [facility] Last Admin: 03/19/23 10:02 Dose: 1 patch Varenicline (Varenicline 1 Mg Tab) 1 mg PO BID [facility] Last Admin: 03/19/23 08:20 Dose: 1 mg Past medical history to include: GERD, hypertension, hyperlipidemia, low back pain with spasms Social history: . . Alcohol rarely. Smokes a pack a day for last 27 years. 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 Conjunctiva normal. HEENT: External appearance of nose and ears normal, oral cavity grossly normal. NECK: JVD not raised; masses not palpable. HEART: First and second heart sounds are normal; no edema. LUNGS: Respiratory rate normal; clear to auscultation. ABDOMEN: Soft, left lower quadrant tenderness, no guarding rigidity, liver spleen not palpable, no masses palpable. PSYCH: [Alert and oriented x3; mood and affect normal k INVESTIGATIONS, reviewed in the clinical context: March 19: White count 9.1 hemoglobin 11.7 platelets 227 potassium 3.3 creatinine 0.9 March 18: White count 13 hemoglobin 12.9 platelets 231 sodium 134 potassium 3.7 creatinine 0.82 albumin 3.2 Computed tomography scan abdomen with contrast from [facility]: Acute diverticulitis with perforation with a tracking down to the mesentery. Assessment and plan: -Acute diverticulitis with perforation with a tracking down to the mesentery. Symptoms present for 4 days prior to presentation. Causing sepsis: Slow to respond Started on clear liquids IV Zosyn, IV Flagyl -Morbid obesity BMI 41.4 Outpatient, weight loss measures -Essential hypertension Lisinopril 5 mg a day -GERD PPI -Chronic lower back pain with muscle spasms Baclofen when necessary. -Hyperlipidemia Lipitor 40 mg -Chronic nicotine dependence, cigarette smoker Nicotine patch. Chantix. discussed with the patient and the . Continue current treatment. Clear liquids.. Thank you Past Medical History Past Medical History: No Reported History History of Any Multi-Drug Resistant Organisms: None Reported Past Surgical History: Cholecystectomy Smoking Status: Current every day smoker Past Alcohol Use History: Rare Past Drug Use History: None Reported
[2023-03-19] MEDS: LACTATED RINGERS 1,000 ML IV SCH ×2 (18:02→23:45)
[2023-03-20] MEDS: ACETAMINOPHEN IV (For NPO) 1,000 MG in EMPTY BAG 1 BAG IVPB SCH (05:14)
[2023-03-20] MEDS: PIPERACILLIN-TAZOBACTAM 3.375 GM in SODIUM CHLORIDE 0.9% 100 ML IVPB SCH ×2 (08:09→16:49)
[2023-03-20] MEDS: metroNIDAZOLE-NS PMX 500 MG in SALINE 1 100ML.BAG IVPB SCH ×2 (08:10→16:51)
[2023-03-20] MEDS: HEPARIN SODIUM,PORCINE 5,000 UNIT/ML 1 ML VIAL SQ SCH ×2 (08:11→21:40)
[2023-03-20] MEDS: ATORVASTATIN 40 MG TAB PO SCH (08:11)
[2023-03-20] MEDS: lisinopriL 5 MG TAB PO SCH (08:11)
[2023-03-20] MEDS: NICOTINE 21MG/24HR PATCH TRANSDERM SCH (08:11)
[2023-03-20] MEDS: PANTOPRAZOLE 40 MG/10 ML VIAL IVP SCH (08:11)
[2023-03-20 08:37] LABS: Basophils % (A) 1 %; Eosinophils # (A) 0.2 k/uL (0-0.7); Eosinophils % (A) 2 %; HCT 35.3 % (39.0-53.0); HGB 12.3 gm/dL (13.0-17.5); Lymphocytes # (A) 1.2 k/uL (1.0-4.8); Lymphocytes % (A) 20 %; MCH 31.8 pg (25.0-35.0); MCHC 34.7 g/dL (31.0-37.0); MCV 91.6 fL (80.0-100.0); Mean Platelet Volume 7.1; Monocytes # (A) 0.5 k/uL (0-1.0); Monocytes % (A) 8 %; Neutrophils % (A) 67 %; Platelet Count 285 k/uL (150-450); RBC 3.85 m/uL (4.30-5.90); RDW 12.3 % (11.5-15.5); WBC 6.1 k/uL (3.8-10.6)
[2023-03-20] MEDS: VARENICLINE 1 MG TAB PO SCH ×2 (08:45→22:29)
[2023-03-20 08:47] LABS: African American GFR (CKD) >90 (>60 ml/min/1.73 sqM); Anion Gap 9 mmol/L; Blood Urea Nitrogen 9 mg/dL (9-20); Calcium 8.3 mg/dL (8.4-10.2); Carbon Dioxide 21 mmol/L (22-30); Chloride 107 mmol/L (98-107); Glucose 119 mg/dL (74-99); Non-African American GFR(CKD) >90 (>60 ml/min/1.73 sqM); Potassium 3.6 mmol/L (3.5-5.1); Sodium 137 mmol/L (137-145)
[2023-03-20] MEDS: ONDANSETRON 4 MG/2 ML VIAL IVP PRN ×2 (10:48→17:04)
[2023-03-20] MEDS: LACTATED RINGERS 1,000 ML IV SCH ×2 (10:57→16:51)
--- NOTE | 2023-03-20 13:31 | P.PN ---
Subjective Progress Note Date: 03/20/23 CHIEF COMPLAINT: Diverticulitis with perforation HISTORY OF PRESENT ILLNESS: Patient complains of nausea and dry heaves again. He is having bowel movements. He reports 0 abdominal pain. He feels that the clear liquids may be contributing to his nausea. Afebrile. WBC 6.1 potassium 3.6 PHYSICAL EXAM: VITAL SIGNS: Reviewed. GENERAL: Well-developed in no acute distress. ABDOMEN: Soft. Nondistended. Minimal discomfort with palpation of left lower quadrant NEUROLOGIC: Alert and oriented. Cranial nerves II through XII grossly intact. ASSESSMENT: 1. Acute sigmoid diverticulitis with perforation PLAN: -Advance diet to full liquids -Continue IV antibiotics -Encourage patient to ambulate -Continue antiemetics -GI prophylaxis Protonix and DVT prophylaxis subcu heparin Physician Railway Track Plant Operator note has been reviewed by physician. Signing provider agrees with the documented findings, assessment, and plan of care. Objective - Vital Signs Vital signs: Vital Signs Temp 98.4 F 03/20/23 07:09 Pulse 75 03/20/23 07:09 Resp 16 03/20/23 07:09 BP 128/77 03/20/23 07:09 Pulse Ox 93 L 03/20/23 07:09 FiO2 Intake & Output 03/19/23 03/20/23 03/20/23 18:59 06:59 18:59 Other: Voiding Method Toilet # Voids 3 3 - Labs CBC & Chem 7: 03/20/23 08:23 03/20/23 08:23 Labs: Abnormal Lab Results - Last 24 Hours (Table) 03/20/23 03/20/23 Range/Units 08: 08:23 RBC 3.85 L (4.30-5.90) m/uL Hgb 12.3 L (13.0-17.5) gm/dL Hct 35.3 L (39.0-53.0) % Carbon Dioxide 21 L (22-30) mmol/L Glucose 119 H (74-99) mg/dL Calcium 8.3 L (8.4-10.2) mg/dL Microbiology - Last 24 Hours (Table) 03/18/23 10:41 Blood Culture - Preliminary Blood 03/18/23 10:15 Blood Culture - Preliminary Blood
--- NOTE | 2023-03-20 17:55 | P.PN ---
Progress Note - Text Progress Note Date: 03/20/23 - Chief Complaint Abdominal pain Hospital course: This is a pleasant 43-year-old patient, follows with Dr. Corey Cabral. Patient is accompanied by his . About 4 days ago patient started having lower abdominal pain. Progressively got worse. Nausea vomiting. 7 having irregular bowel movements. Pain became rather severe and significant. Presented to [facility] yesterday. Computed tomography scan showed acute bout of colitis with perforation with a tracking to the mesentery. Transferred down here. Pain significantly present. Started on IV Zosyn. Up in a chair. Having low-grade fevers. March 19: Up in a chair. No bowel movement. No nausea vomiting. Sliding significant abdominal pain. No fever. at the bedside. Started on clear liquids by surgery. IV Zosyn and IV Flagyl. March 20 dose: Abdominal pain better. Did vomit once last night and this morning. On full liquid diet per surgery. No fever no chills. Up in a chair. some loose stools. Active Medications Atorvastatin Calcium (Atorvastatin 40 Mg Tab) 40 mg PO DAILY [facility] Last Admin: 03/20/23 08:11 Dose: 40 mg Baclofen (Baclofen 10 Mg Tab) 10 mg PO TID PRN PRN Reason: Muscle Spasm Last Admin: 03/18/23 13:31 Dose: 10 mg Heparin Sodium (Porcine) (Heparin Sodium,Porcine 5,000 Unit/Ml 1 Ml Vial) 5,000 unit SQ Q12HR [facility] Last Admin: 03/20/23 08:11 Dose: 5,000 unit Hydromorphone HCl (Hydromorphone 1 Mg/Ml 1 Ml Syringe) 1 mg IVP Q3HR PRN PRN Reason: Moderate Pain (Scale 4 to 6) Last Admin: 03/19/23 06:05 Dose: 1 mg Piperacillin Sod/Tazobactam (Sod 3.375 gm/ Sodium Chloride) 100 mls @ 25 mls/hr IVPB Q8HR [facility]; Protocol Last Admin: 03/20/23 16:49 Dose: 25 mls/hr Metronidazole 500 mg/ IV (Solution) 100 mls @ 100 mls/hr IVPB Q8HR [facility]; Protocol Last Admin: 03/20/23 16:51 Dose: 100 mls/hr Lactated Ringer's (Lactated Ringers) 1,000 mls @ 125 mls/hr IV .Q8H [facility] Last Admin: 03/20/23 16:51 Dose: 125 mls/hr Lisinopril (Lisinopril 5 Mg Tab) 5 mg PO DAILY [facility] Last Admin: 03/20/23 08:11 Dose: 5 mg Naloxone HCl (Naloxone 0.4 Mg/Ml 1 Ml Vial) 0.2 mg IV Q2M PRN PRN Reason: Opioid Reversal Nicotine (Nicotine 21mg/24hr Patch) 1 patch TRANSDERM DAILY [facility] Last Admin: 03/20/23 08:11 Dose: 1 patch Ondansetron HCl (Ondansetron 4 Mg/2 Ml Vial) 4 mg IVP Q6HR PRN PRN Reason: Nausea And Vomiting Last Admin: 03/20/23 17:04 Dose: 4 mg Pantoprazole Sodium (Pantoprazole 40 Mg/10 Ml Vial) 40 mg IVP DAILY [facility] Last Admin: 03/20/23 08:11 Dose: 40 mg Scopolamine (Scopolamine 1 Mg/72 Hr Patch) 1 patch TRANSDERM Q72H [facility] Last Admin: 03/19/23 10:02 Dose: 1 patch Varenicline (Varenicline 1 Mg Tab) 1 mg PO BID [facility] Last Admin: 03/20/23 08:45 Dose: 1 mg Past medical history to include: GERD, hypertension, hyperlipidemia, low back pain with spasms Social history: . . Alcohol rarely. Smokes a pack a day for last 27 years. 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 Conjunctiva normal. HEENT: External appearance of nose and ears normal, oral cavity grossly normal. NECK: JVD not raised; masses not palpable. HEART: First and second heart sounds are normal; no edema. LUNGS: Respiratory rate normal; clear to auscultation. ABDOMEN: Soft, much decreased-left lower quadrant tenderness, no guarding rigidity, liver spleen not palpable, no masses palpable. PSYCH: [Alert and oriented x3; mood and affect normal k INVESTIGATIONS, reviewed in the clinical context: March 20: White count 6.1 hemoglobin 12.3 potassium 3.6 creatinine 0.7 March 19: White count 9.1 hemoglobin 11.7 platelets 227 potassium 3.3 creatinine 0.9 March 18: White count 13 hemoglobin 12.9 platelets 231 sodium 134 potassium 3.7 creatinine 0.82 albumin 3.2 Computed tomography scan abdomen with contrast from [facility]: Acute diverticulitis with perforation with a tracking down to the mesentery. Assessment and plan: -Acute diverticulitis with perforation with a tracking down to the mesentery. Symptoms present for 4 days prior to presentation. Causing sepsis: Clinically improving Surgery advanced patient to full liquids IV Zosyn, IV Flagyl -Morbid obesity BMI 41.4 Outpatient, weight loss measures -Essential hypertension Lisinopril 5 mg a day -GERD PPI -Chronic lower back pain with muscle spasms Baclofen when necessary. -Hyperlipidemia Lipitor 40 mg -Chronic nicotine dependence, cigarette smoker Nicotine patch. Chantix. Activity as tolerated. Continue antibiotics. Full liquid diet. Thank you Past Medical History Past Medical History: No Reported History History of Any Multi-Drug Resistant Organisms: None Reported Past Surgical History: Cholecystectomy Smoking Status: Current every day smoker Past Alcohol Use History: Rare Past Drug Use History: None Reported
[2023-03-21] MEDS: metroNIDAZOLE-NS PMX 500 MG in SALINE 1 100ML.BAG IVPB SCH ×2 (00:30→08:02)
[2023-03-21] MEDS: PIPERACILLIN-TAZOBACTAM 3.375 GM in SODIUM CHLORIDE 0.9% 100 ML IVPB SCH ×3 (00:30→15:06)
[2023-03-21] MEDS: LACTATED RINGERS 1,000 ML IV SCH ×2 (00:31→08:04)
[2023-03-21] MEDS: ONDANSETRON 4 MG/2 ML VIAL IVP PRN ×2 (00:43→09:03)
[2023-03-21] MEDS: HEPARIN SODIUM,PORCINE 5,000 UNIT/ML 1 ML VIAL SQ SCH (08:02)
[2023-03-21] MEDS: PANTOPRAZOLE 40 MG/10 ML VIAL IVP SCH (08:02)
[2023-03-21] MEDS: lisinopriL 5 MG TAB PO SCH (08:03)
[2023-03-21] MEDS: ATORVASTATIN 40 MG TAB PO SCH (08:03)
[2023-03-21] MEDS: NICOTINE 21MG/24HR PATCH TRANSDERM SCH (08:03)
[2023-03-21] MEDS: VARENICLINE 1 MG TAB PO SCH (08:03)
--- NOTE | 2023-03-21 11:38 | P.PN ---
Subjective Progress Note Date: 03/21/23 CHIEF COMPLAINT: Diverticulitis with perforation HISTORY OF PRESENT ILLNESS: Patient reports that his abdominal pain is gone. He has had a bowel movement. He continues to have nausea and dry heaves. It does seem to be worse after patient receives antibiotics. He is tolerating the full liquids. He is hungry and wishes to eat. Afebrile. PHYSICAL EXAM: VITAL SIGNS: Reviewed. GENERAL: Well-developed in no acute distress. ABDOMEN: Soft. Nondistended. Nontender NEUROLOGIC: Alert and oriented. Cranial nerves II through XII grossly intact. ASSESSMENT: 1. Acute sigmoid diverticulitis with perforation PLAN: -Advance diet to low fiber -Discontinue Flagyl. This may be contributing to patient's severe nausea -Continue IV zosyn -Encourage patient to ambulate -Continue antiemetics -Patient's nausea needs to be better before he can be discharged -GI prophylaxis Protonix and DVT prophylaxis subcu heparin Physician Pairer Inspector note has been reviewed by physician. Signing provider agrees with the documented findings, assessment, and plan of care. I have personally seen and examined the patient, reviewed the CIVIL RIGHTS REPRESENTATIVE /PAs history, exam and MDM and agree with the assessment and plan as written. Based on total visit time, I have performed more than 50% of the visit. As above: Patient still having episodes of nausea and dry heaves. Denies abdominal bloating. No pain. Patient is hungry and would like to go home. We'll discontinue Flagyl. Advance diet. May discharge if nausea and dry heaves resolved. Follow-up as outpatient. Objective - Vital Signs Vital signs: Vital Signs Temp 98.4 F 03/21/23 07:04 Pulse 81 03/21/23 07:04 Resp 16 03/21/23 07:04 BP 130/83 03/21/23 07:04 Pulse Ox 95 03/21/23 07:04 FiO2 Intake & Output 03/20/23 03/21/23 03/21/23 18:59 06:59 18:59 Other: Voiding Method Toilet # Voids 4 2 1 - Labs CBC & Chem 7: 03/20/23 08:23 03/20/23 08:23 Labs: Microbiology - Last 24 Hours (Table) 03/18/23 10:41 Blood Culture - Preliminary Blood 03/18/23 10:15 Blood Culture - Preliminary Blood
--- NOTE | 2023-03-21 14:45 | P.DS ---
Providers Date of admission: 03/17/23 22:11 Expected date of discharge: 03/21/23 Attending physician: Ha Perez Consults: 03/18/23 08:47 Consult Physician Routine Consulting Provider: Dell Paz Consult Reason/Comments: medical management Do you want consulting provider notified?: Yes Primary care physician: Zev Cabral Hospital Course: Discharge diagnosis 1. Acute sigmoid diverticulitis with perforation Hospital course This is a 43-year-old male who presented to the hospital with complaints of left lower quadrant abdominal pain. He is found have evidence of acute sigmoid diverticulitis with perforation on computed tomography scan. Patient was managed medically. Abdominal pain has resolved. He is tolerating diet. He denies any nausea or vomiting. He has been up and ambulating. He's afebrile. He is stable for discharge with outpatient follow-up. He'll be discharged with oral antibiotics. Please refer to chart for any further details. Physician Associate Media Planner note has been reviewed by physician. Signing provider agrees with the documented findings, assessment, and plan of care. Patient Condition at Discharge: Stable Plan - Discharge Summary Discharge Rx Participant: Yes New Discharge Prescriptions: New Levofloxacin [Levaquin] 750 mg PO DAILY 1 Days #10 tab Continue lisinopriL [Zestril] 5 mg PO DAILY Varenicline Tartrate 1 mg PO BID Baclofen 10 mg PO TID PRN PRN Reason: Muscle Spasm Ibuprofen [Motrin] 800 mg PO TID-W/MEALS PRN PRN Reason: Pain Acetaminophen Tab [Tylenol] 1,000 mg PO Q6HR PRN PRN Reason: Fever And/ Or Pain Omeprazole 40 mg PO DAILY Atorvastatin [Lipitor] 40 mg PO DAILY Discharge Medication List Acetaminophen Tab [Tylenol] 1,000 mg PO Q6HR PRN 03/17/23 [History] Atorvastatin [Lipitor] 40 mg PO DAILY 03/17/23 [History] Baclofen 10 mg PO TID PRN 03/17/23 [History] Ibuprofen [Motrin] 800 mg PO TID-W/MEALS PRN 03/17/23 [History] Omeprazole 40 mg PO DAILY 03/17/23 [History] Varenicline Tartrate 1 mg PO BID 03/17/23 [History] lisinopriL [Zestril] 5 mg PO DAILY 10/01/23 [History] Levofloxacin [Levaquin] 750 mg PO DAILY 1 Days #10 tab 03/21/23 [Rx] Follow up Appointment(s)/Referral(s): Ha Perez MD [Medical Doctor] - 3 Weeks Zev Cabral MD [Primary Care Provider] - 1-2 days Discharge Disposition: HOME SELF-CARE
[2023-03-21 15:26] VITALS: BP 152/82; PULSE 70; RESP 18; TEMP 98.2
--- NOTE | 2023-03-21 16:35 | P.PN ---
Subjective Progress Note Date: 03/21/23 - Chief Complaint Abdominal pain Hospital course: This is a pleasant 43-year-old patient, follows with Dr. Corey Cabral. Patient is accompanied by his . About 4 days ago patient started having lower abdominal pain. Progressively got worse. Nausea vomiting. 7 having irregular bowel movements. Pain became rather severe and significant. Presen ruby to [facility] yesterday. Computed tomography scan showed acute bout of colitis with perforation with a tracking to the mesentery. Transferred down here. Pain significantly present. Started on IV Zosyn. Up in a chair. Having low-grade fevers. March 19: Up in a chair. No bowel movement. No nausea vomiting. Sliding significant abdominal pain. No fever. at the bedside. Started on clear liquids by surgery. IV Zosyn and IV Flagyl. March 20 dose: Abdominal pain better. Did vomit once last night and this morning. On full liquid diet per surgery. No fever no chills. Up in a chair. some loose stools. 03/21/2033 Patient is seen and evaluated and follow-up currently sitting up in the chair maintained on IV antibiotics with general surgery is admitting for diverticulitis with perforation. Patient reports no significant abdominal pain and was having some intermittent periods of nausea with no vomiting. Patient reports feeling much better and would like to go home. Will need antibiotics on discharge and close outpatient follow-up. Patient also instructed to follow-up with primary care provider. Patient to continue current diet and slowly advance as tolerated. Would recommend continuing full liquids and advance to low fiber at most. Patient counseled extensively on diet for diverticulitis and will be provided with handouts diet information for discharge. Patient is afebrile with no reports of chest pain or shortness of breath. Patient tolerating diet with no reported nausea or vomiting at this time. Patient is medically stable for discharge today. Review of systems: Constitutional: No reports of fatigue, fever, or chills Cardiovascular: No reports of chest pain or palpitations Respiratory: no reports of shortness of breath or cough GI: reports of intermittent nausea, no vomiting, or diarrhea, denies further abdominal pain : No reports of dysuria or retention Neurovascular: No reports of weakness or numbness All medications have been reviewed Physical examination: GENERAL: , sitting up in a chair EYES: Pupils equal. Conjunctiva normal. HEENT: External appearance of nose and ears normal, oral cavity grossly normal. NECK: JVD not raised; masses not palpable. HEART: First and second heart sounds are normal; no edema. LUNGS: Respiratory rate normal; clear to auscultation. ABDOMEN: Soft, much decreased-left lower quadrant tenderness, no guarding rigidity, liver spleen not palpable, no masses palpable. PSYCH: [Alert and oriented x3; mood and affect normal Assessment: -Acute diverticulitis with perforation with a tracking down to the mesentery. Symptoms present for 4 days prior to presentation. Causing sepsis: Clinically improving -Morbid obesity BMI 41.4 -Essential hypertension -GERD -Chronic lower back pain with muscle spasms -Hyperlipidemia -Chronic nicotine dependence, cigarette smoker Plan: Patient maintained on antibiotics per surgery and will continue on oral antibiotics with close outpatient follow-up. Patient has been instructed to follow strict diet and will continue full liquids and slowly advance to low fiber at most until follow-up with surgery Patient instructed to follow-up with primary care provider on discharge Avoid any bending over or heavy lifting Avoid constipation Tobacco cessation discussed Patient is medically stable for discharge today Patient has also been instructed to report to the local ER or call 911 if is having any worsening abdominal pain, fevers and patient verbalized understanding Thank you kindly for this consultation. We will continue to follow with general surgery during hospitalization. The impression and plan of care has been dictated by Vera Moore, Nurse Practitioner as directed. Dr. Micaela MD I have performed a history and examination and MDM of this patient, discussed the same with the dictator, and agree with the dictator's assessment and plan as written ,documented as a scribe. Based on total visit time, I have performed more than 50% of the visit. Objective - Vital Signs Vital signs: Vital Signs Temp 98.4 F 03/21/23 07:04 Pulse 81 03/21/23 07:04 Resp 16 03/21/23 07:04 BP 130/83 03/21/23 07:04 Pulse Ox 95 03/21/23 07:04 FiO2 Intake & Output 03/20/23 03/21/23 03/21/23 18:59 06:59 18:59 Other: Voiding Method Toilet # Voids 4 2 - Labs CBC & Chem 7: 03/20/23 08:23 03/20/23 08:23 Labs: Microbiology - Last 24 Hours (Table) 03/18/23 10:41 Blood Culture - Preliminary Blood 03/18/23 10:15 Blood Culture - Preliminary Blood
== END 2023-03-21 15:53 | disposition home or self-care (01) | DRG 872 ==
LOC: EC 21:18 → 4SSUR 22:11
PROVIDERS: ADMIT Surgery; ATTEND Surgery
DX: A41.9 Sepsis, unspecified organism (principal); Z68.41 Body mass index [BMI] 40.0-44.9, adult; K57.20 Diverticulitis of large intestine with perforation and abscess without bleeding; E66.01 Morbid (severe) obesity due to excess calories; E78.5 Hyperlipidemia, unspecified; I10 Essential (primary) hypertension; K21.9 Gastro-esophageal reflux disease without esophagitis; F17.210 Nicotine dependence, cigarettes, uncomplicated; G89.29 Other chronic pain; K52.9 Noninfective gastroenteritis and colitis, unspecified; Z79.899 Other long term (current) drug therapy; Z90.49 Acquired absence of other specified parts of digestive tract
CPT/HCPCS: 36415; 74019; 80048; 80053; 85025; 86850; 86900; 86901; 87040; 96361; 96374; 96375; 99285

== ENCOUNTER 2023-03-22 14:01 | Inpatient (IN) | payer OTHER ==
--- NOTE | 2023-03-22 17:38 | ED ---
Abdominal Pain HPI - General Source: patient Mode of arrival: ambulatory Limitations: no limitations <Talon Mancini - Last Filed: 03/22/23 17:39> - General Source: patient, RN notes reviewed, old records reviewed <Leo Mckeon - Last Filed: 03/22/23 22:09> - General Chief Complaint: Abdominal Pain Stated Complaint: Diverticulosis Issue Time Seen by Provider: 03/22/23 17:39 - History of Present Illness Initial Comments: 43 year old Male presenting to the ED with a chief complaint of abdominal pain. Patient discharged here on 03/21/23 after being admitted for diverticulitis with perforation. At time of discharge, patient reports no abdominal pain. Today, notes onset of abdominal pain, nausea, vomiting. No blood in the stool. No diarrhea. No fever. (Talon Mancini) Patient is a 43-year-old male who presents originally as a clinical evaluation. Patient was recently discharged following medical management a perforated diverticulitis. Has been having worsening abdominal pain with nausea and vomiting for the last day. Also is complaining of some left testicular pain. States primary pain is in the abdomen. Has no other acute complaints at this time. Denies any fevers. Denies constipation states he is having small bowel movements are brown in color. Denies any chest pain or shortness of breath. P resents for further evaluation at this time. (Leo Mckeon) - Related Data Home Medications Medication Instructions Recorded Confirmed Acetaminophen Tab [Tylenol] 1,000 mg PO Q6HR PRN 03/17/23 03/22/23 Atorvastatin [Lipitor] 40 mg PO DAILY 03/17/23 03/22/23 Baclofen 10 mg PO TID PRN 03/17/23 03/22/23 Ibuprofen [Motrin] 800 mg PO TID-W/MEALS PRN 03/17/23 03/22/23 Omeprazole 40 mg PO DAILY 03/17/23 03/22/23 Varenicline Tartrate 1 mg PO BID 03/17/23 03/22/23 lisinopriL [Zestril] 5 mg PO DAILY 03/17/23 03/22/23 Previous Rx's Medication Instructions Recorded Levofloxacin [Levaquin] 750 mg PO DAILY 1 Days #10 tab 03/21/23 Allergies Allergy/AdvReac Type Severity Reaction Status Date / Time No Known Allergies Allergy Verified 03/22/23 14:28 Review of Systems ROS Other: All systems not noted in ROS Statement are negative. <RkbobTalon ding - Last Filed: 03/22/23 17:39> ROS Other: All systems not noted in ROS Statement are negative. <Leo Mckeon - Last Filed: 03/22/23 22:09> ROS Statement: Those systems with pertinent positive or pertinent negative responses have been documented in the HPI. Review of Systems: CONST: Denies fever EYES: Denies blurry vision ENT: Denies nasal congestion C/V: Denies Chest pain RESP: Denies shortness of breath GI: Endorses abdominal pain : Denies dysuria SKIN: Denies rash. MSK: Denies joint pain. NEURO: Denies headache (Leo Mckeon) Past Medical History Past Medical History: No Reported History Additional Past Medical History / Comment(s): divirticulitis History of Any Multi-Drug Resistant Organisms: None Reported Past Surgical History: Cholecystectomy Smoking Status: Current every day smoker Past Alcohol Use History: Rare Past Drug Use History: None Reported <RkbobTalon ding - Last Filed: 03/22/23 17:39> General Exam Limitations: no limitations General appearance: alert, in no apparent distress Neck exam: Present: normal inspection Extremities exam: Present: normal inspection Back exam: Present: normal inspection <Talon Mancini - Last Filed: 03/22/23 17:39> <Leo Mckeon - Last Filed: 03/22/23 22:09> - General Exam Comments Initial Comments: General: Appears in mild to moderate distress secondary to abdominal pain. HEAD: Normal with no signs of head trauma. EYES: PERRLA, EOMI, conjunctiva normal, no discharge. ENT: Hearing grossly intact, normal oropharynx. RESPIRATORY: Clear breath sounds bilaterally. No wheezes, rales, or rhonchi. C/V: Regular rate and rhythm. S1 and S2 auscultated, no edema, peripheral pulses 2+ and intact throughout ABD: Abdomen soft, nondistended. Tender to palpation left lower quadrant and suprapubic region. No guarding. No peritoneal signs. No rebound tenderness. Scrotal exam is unremarkable with minimal tenderness if any of the left hemiscrotum. EXT: Normal range of motion, no obvious deformity SKIN: No rashes or lesions observed on exposed skin. NEURO: Alert and oriented 4. (Leo Mckeon) Course Vital Signs 03/22/23 14:23 Temperature 97.9 F Pulse Rate 89 Respiratory 20 Rate Blood Pressure 128/88 O2 Sat by Pulse 100 Oximetry Medical Decision Making <Talon Mancini - Last Filed: 03/22/23 17:39> - Lab Data Result diagrams: 03/22/23 18:59 03/22/23 19:21 <Leo Mckeon - Last Filed: 03/22/23 22:09> - Medical Decision Making Quicknote portion performed. Signed Talon Mancini PA-C (Talon Mancini) Was pt. sent in by a medical professional or institution ([facility], BOOKING PRIZER, urgent care, hospital, or senior living...) When possible be specific @ -No Did you speak to anyone other than the patient for history (EMS, parent, family, police, friend...)? What history was obtained from this source @ -No Did you review nursing and triage notes (agree or disagree)? Why? @ -I reviewed and agree with nursing and triage notes Were old charts reviewed (outside hosp., previous admission, EMS record, old EKG, old radiological studies, urgent care reports/EKG's, senior living records)? Report findings @ -Old charts reviewed Differential Diagnosis (chest pain, altered mental status, abdominal pain women, abdominal pain men, vaginal bleeding, weakness, fever, dyspnea, syncope, headache, dizziness, GI bleed, back pain, seizure, CVA, palpatations, mental health, musculoskeletal)? @ -Differential Abdominal Pain Men: Appendicitis, cholecystitis, diverticulosis, ischemic bowel, pancreatitis, hepatitis, UTI, gastroenteritis, AAA, incarcerated hernia, bowel obstruction, constipation, inflammatory bowel, hepatitis, peptic ulcer disease, splenic infarction, perforated viscus, testicular torsion, this is not meant to be an all-inclusive list EKG interpreted by me (3pts min.). @ -None done X-rays interpreted by me (1pt min.). @ -None done CT interpreted by me (1pt min.). @ -CT abdomen and pelvis reveals continued and possibly worse perforated diverticulitis with free air as well as more debris present. Discussed with radiology. U/S interpreted by me (1pt. min.). @ -Ultrasound reveals no evidence of torsion. Possible epididymitis. What testing was considered but not performed or refused? (CT, X-rays, U/S, labs)? Why? @ -None What meds were considered but not given or refused? Why? @ -None Did you discuss the management of the patient with other professionals (professionals i.e. Dr., PA, BOOKING PRIZER, lab, RT, psych nurse, social services designee, tanning wheel filler, teacher, trust officer, rn case manager hospice)? Give summary @ -Discussed with radiology Dr. Cuenca who called regarding CT findings. Also discussed with the admitting physician, Dr. Trotter who is covering for Dr. Perez who accepted the patient. He was in agreement with the plan for ant ibiotics and nothing by mouth. Was smoking cessation discussed for >3mins.? @ -No Was critical care preformed (if so, how long)? @ -Yes, 34 minutes. Were there social determinants of health that impacted care today? How? (Homelessness, low income, unemployed, alcoholism, drug addiction, transportation, low edu. Level, literacy, decrease access to med. care, nursing home, rehab)? @ -No Was there de-escalation of care discussed even if they declined (Discuss DNR or withdrawal of care, Hospice)? DNR status @ -No What co-morbidities impacted this encounter? (DM, HTN, Smoking, COPD, CAD, Cancer, CVA, ARF, Chemo, Hep., AIDS, mental health diagnosis, sleep apnea, morbid obesity)? @ -None Was patient admitted / discharged? Hospital course, mention meds given and route, prescriptions, significant lab abnormalities, going to OR and other pertinent info. @ -Based on the patient's presentation physical exam, I'm concerned for worsening intra-abdominal process at this time. Due to the scrotal tenderness we will also obtain an ultrasound of scrotum. We will obtain abdominal l aboratory studies, and symptomatically treated patient with IV morphine, Zofran, fluids. Patient was in agreement with this plan. Patient's labs are remarkable for leukocytosis of 12.9. Lactic acid within normal limits. Urine is still pending. Scrotal ultrasound shows possible epididymitis no evidence of torsion. CT shows worsening of the perforation of the diverticulitis. I updated the patient. I spoke with Dr. Cuenca regarding the CT findings. I spoke with Dr. Trotter regarding the patient who accepted the patient under his service as he is covering for Dr. Perez. Patient started on IV Zosyn as well as IV fluids. Made nothing by mouth. Patient was in agreement this plan. Undiagnosed new problem with uncertain prognosis? @ -No Drug Therapy requiring intensive monitoring for toxicity (Heparin, Nitro, Insulin, Cardizem)? @ -No Were any procedures done? @ -No Diagnosis/symptom? @ -Perforated diverticulitis Acute, or Chronic, or Acute on Chronic? @ -Acute Uncomplicated (without systemic symptoms) or Complicated (systemic symptoms)? @ -Complicated Side effects of treatment? @ -No Exacerbation, Progression, or Severe Exacerbation? @ -No Poses a threat to life or bodily function? How? (Chest pain, USA, CA, pneumonia, PE, COPD, DKA, ARF, appy, cholecystitis, CVA, Diverticulitis, Homicidal, Suicidal, threat to staff... and all critical care pts) @ -Yes (Leo Mckeon) - Lab Data Lab Results 03/22/23 03/22/23 03/22/23 Range/Units 18:59 19:21 19:21 WBC 12.9 H (3.8-10.6) k/uL RBC 4.61 (4.30-5.90) m/uL Hgb 14.7 (13.0-17.5) gm/dL Hct 42.5 (39.0-53.0) % MCV 92.2 (80.0-100.0) fL MCH 31.9 (25.0-35.0) pg MCHC 34.6 (31.0-37.0) g/dL RDW 12.4 (11.5-15.5) % Plt Count 333 (150-450) k/uL MPV 7.8 Neutrophils % 71 % Lymphocytes % 17 % Monocytes % 7 % Eosinophils % 0 % Basophils % 1 % Neutrophils # 9.2 H (1.3-7.7) k/uL Lymphocytes # 2.2 (1.0-4.8) k/uL Monocytes # 0.9 (0-1.0) k/uL Eosinophils # 0.0 (0-0.7) k/uL Basophils # 0.1 (0-0.2) k/uL PT 11.5 (9.0-12.0) sec INR 1.1 (<1.2) APTT 23.6 (22.0-30.0) sec Sodium (137-145) mmol/L Potassium (3.5-5.1) mmol/L Chloride (98-107) mmol/L Carbon Dioxide (22-30) mmol/L Anion Gap mmol/L BUN (9-20) mg/dL Creatinine (0.66-1.25) mg/dL Est GFR (CKD-EPI)AfAm (>60 ml/min/1.73 sqM) Est GFR (CKD-EPI)NonAf (>60 ml/min/1.73 sqM) Glucose (74-99) mg/dL Plasma Lactic Acid Macario 1.0 (0.7-2.0) mmol/L Calcium (8.4-10.2) mg/dL Total Bilirubin (0.2-1.3) mg/dL AST (17-59) U/L ALT (4-49) U/L Alkaline Phosphatase (38-126) U/L Total Protein (6.3-8.2) g/dL Albumin (3.5-5.0) g/dL Lipase (23-300) U/L Blood Type Blood Type Recheck Bld Type Recheck Status Antibody Screen Spec Expiration Date 03/22/23 03/22/23 Range/Units 19:21 20:30 WBC (3.8-10.6) k/uL RBC (4.30-5.90) m/uL Hgb (13.0-17.5) gm/dL Hct (39.0-53.0) % MCV (80.0-100.0) fL MCH (25.0-35.0) pg MCHC (31.0-37.0) g/dL RDW (11.5-15.5) % Plt Count (150-450) k/uL MPV Neutrophils % % Lymphocytes % % Monocytes % % Eosinophils % % Basophils % % Neutrophils # (1.3-7.7) k/uL Lymphocytes # (1.0-4.8) k/uL Monocytes # (0-1.0) k/uL Eosinophils # (0-0.7) k/uL Basophils # (0-0.2) k/uL PT (9.0-12.0) sec INR (<1.2) APTT (22.0-30.0) sec Sodium 135 L (137-145) mmol/L Potassium 4.1 (3.5-5.1) mmol/L Chloride 104 (98-107) mmol/L Carbon Dioxide 20 L (22-30) mmol/L Anion Gap 11 mmol/L BUN 6 L (9-20) mg/dL Creatinine 0.75 (0.66-1.25) mg/dL Est GFR (CKD-EPI)AfAm >90 (>60 ml/min/1.73 sqM) Est GFR (CKD-EPI)NonAf >90 (>60 ml/min/1.73 sqM) Glucose 94 (74-99) mg/dL Plasma Lactic Acid Macario (0.7-2.0) mmol/L Calcium 8.4 (8.4-10.2) mg/dL Total Bilirubin 1.1 (0.2-1.3) mg/dL AST 105 H (17-59) U/L ALT 92 H (4-49) U/L Alkaline Phosphatase 87 (38-126) U/L Total Protein 7.0 (6.3-8.2) g/dL Albumin 3.5 (3.5-5.0) g/dL Lipase 83 (23-300) U/L Blood Type O Negative Blood Type Recheck O Neg Bld Type Recheck Status No Antibody Screen NEGATIVE Spec Expiration Date 03/25/2023 - 2330 Critical Care Time Critical Care Time: Yes Total Critical Care Time: 34 <Leo Mckeon - Last Filed: 03/22/23 22:09> Disposition <aTlon Mancini - Last Filed: 03/22/23 17:39> Time of Disposition: 21:30 <Leo Mckeon - Last Filed: 03/22/23 22:09> Clinical Impression: Perforated diverticulum of large intestine Disposition: ADMITTED IP TO THIS [facility] Condition: Serious
[2023-03-22] MEDS ORDERED: ONDANSETRON 4 MG/2 ML VIAL IVP STA (17:39)
[2023-03-22] MEDS ORDERED: SODIUM CHLORIDE 0.9% 1,000 ML IV STA ×2 (17:40→21:37)
[2023-03-22] MEDS ORDERED: ACETAMINOPHEN TAB 500 MG TAB PO STA (17:41)
[2023-03-22] MEDS ORDERED: MORPHINE SULFATE 4 MG/ML SYRINGE IVP STA (18:02)
--- NOTE | 2023-03-22 19:24 | US ---
EXAMINATION TYPE: US scrotum with doppler. Grayscale and color Doppler Duplex imaging performed of simona lin scrotum. DATE OF EXAM: 03/22/2023 COMPARISON: NONE CLINICAL INDICATION: Male, 43 years old with history of left testicular pain. eval for torsion; Left testicular pain x few days EXAM MEASUREMENTS: TESTICLES: Right Testicle: 3.9 x 1.7 x 3.3 cm Left Testicle: 3.7 x 1.9 x 2.9 cm EPIDIDYMIS HEAD: Right Epididymis: 1.2 cm Left Epididymis: 1.1 cm Doppler performed to assess for testicular vascularity; good bilateral color flow and waveforms are s een. There is no evidence of testicular torsion. Presence of hydroceles: No Presence of varicoceles: No Small right epi head cyst= 0.3 cm, otherwise unremarkable study IMPRESSION: 1. Appropriate arterial and venous spectral waveforms to the testes bilaterally. 2. There is good flow that might be increased bilaterally consider correlation for epididymoorchitis . 3. No evidence for testicular mass.
[2023-03-22 20:04] LABS: Basophils # (A) 0.1 k/uL (0-0.2); Basophils % (A) 1 %; Eosinophils % (A) 0 %; HCT 42.5 % (39.0-53.0); HGB 14.7 gm/dL (13.0-17.5); Lymphocytes # (A) 2.2 k/uL (1.0-4.8); Lymphocytes % (A) 17 %; MCH 31.9 pg (25.0-35.0); MCHC 34.6 g/dL (31.0-37.0); MCV 92.2 fL (80.0-100.0); Mean Platelet Volume 7.8; Monocytes # (A) 0.9 k/uL (0-1.0); Monocytes % (A) 7 %; Neutrophils # (A) 9.2 k/uL (1.3-7.7); Neutrophils % (A) 71 %; Platelet Count 333 k/uL (150-450); RBC 4.61 m/uL (4.30-5.90); RDW 12.4 % (11.5-15.5); WBC 12.9 k/uL (3.8-10.6)
[2023-03-22 20:08] LABS: INR 1.1 (<1.2); Partial Thromboplastin Time 23.6 sec (22.0-30.0); Prothrombin Time 11.5 sec (9.0-12.0)
[2023-03-22 20:10] LABS: ALT 92 U/L (4-49); AST 105 U/L (17-59); African American GFR (CKD) >90 (>60 ml/min/1.73 sqM); Albumin 3.5 g/dL (3.5-5.0); Alkaline Phosphatase 87 U/L (38-126); Anion Gap 11 mmol/L; Blood Urea Nitrogen 6 mg/dL (9-20); Calcium 8.4 mg/dL (8.4-10.2); Carbon Dioxide 20 mmol/L (22-30); Chloride 104 mmol/L (98-107); Glucose 94 mg/dL (74-99); Lipase 83 U/L (23-300); Non-African American GFR(CKD) >90 (>60 ml/min/1.73 sqM); Sodium 135 mmol/L (137-145); Total Bilirubin 1.1 mg/dL (0.2-1.3)
[2023-03-22 20:15] LABS: Potassium 4.1 mmol/L (3.5-5.1)
[2023-03-22] MEDS ORDERED: VANCOMYCIN IV PER PHARMACY 1 EACH MISC MISCELLANE PRN (21:36)
[2023-03-22] MEDS ORDERED: PIPERACILLIN-TAZOBACTAM 3.375 GM in SODIUM CHLORIDE 0.9% 100 ML IVPB STA (21:41)
[2023-03-22] MEDS ORDERED: NALOXONE 0.4 MG/ML 1 ML VIAL IV PRN (21:42)
--- NOTE | 2023-03-22 21:42 | CT ---
EXAMINATION TYPE: CT pelvis wo con, CT abdomen pelvis w con CT DLP: 1334 (accession [id number]), 2162.9 (accession [id number]) mGycm, Automated exposure control for dose reduction was used. DATE OF EXAM: 03/22/2023 9:16 PM COMPARISON: CT abdomen pelvis most recent from 03/17/2023. CLINICAL INDICATION:Male, 43 years old with history of pain; lower abdominal pain x 8 days (accession [id number]), diverticulitis flare up x 8 days (accession [id number]) TECHNIQUE: Axial CT of the abdomen and pelvis. Sagittal and coronal reformats were created on a [employer] workstation. Contrast used:100 cc mL of Isovue 300 with IV Contrast, (none if empty) Oral contrast used: without Oral Contrast (none if empty) FINDINGS: LOWER CHEST: Unremarkable ABDOMEN LIVER: Unremarkable GALLBLADDER AND BILE DUCTS: The gallbladder is surgically absent. PANCREAS: Unremarkable. SPLEEN: Unremarkable. ADRENAL GLANDS: Unremarkable. KIDNEYS AND URETERS: No evidence of hydronephrosis or renal calculus. The ureters are unremarkable. PELVIS BLADDER: Unremarkable REPRODUCTIVE: Unremarkable. ABDOMEN & PELVIS STOMACH AND BOWEL: There is evidence for acute complicated diverticulitis/colitis with free air and o rganizing fluid collection/containing feces measuring 5.5 x 2.8 cm best appreciated on pelvic imaging series 203 image 83 and series 201 image 40.e There is more foci of gas in the right lateral aspect of this larger pocket as well as superiorly. PERITONEUM/RETROPERITONEUM: Scattered foci of pneumoperitoneum are present around the sigmoid colon. Air-fluid lesion described above where there was a perforation. VASCULATURE: No evidence of aortic aneurysm. MUSCULOSKELETAL: No acute osseous abnormalities LYMPH NODES: No gross evidence for lymphadenopathy. SOFT TISSUE/ABDOMINAL WALL: Fat-containing umbilical hernia. IMPRESSION: Worsening perforated colitis/diverticulitis with increased pneumoperitoneum and more free fluid/feces now present layering posterior to the sigmoid colon in the pelvis. Coronal consultation recommended. Findings communicated to Dr. Leo Mckeon MD on 03/22/2023 9:[address] Ramírez Cuenca.
[2023-03-22] MEDS ORDERED: SODIUM CHLORIDE 0.9% 1,000 ML IV SCH (21:45)
[2023-03-22] MEDS: MORPHINE SULFATE 4 MG/ML SYRINGE IVP PRN (22:32)
[2023-03-23] MEDS: MORPHINE SULFATE 4 MG/ML SYRINGE IVP PRN ×4 (04:35→21:25)
[2023-03-23] MEDS: PIPERACILLIN-TAZOBACTAM 3.375 GM in SODIUM CHLORIDE 0.9% 100 ML IVPB SCH ×3 (05:43→21:24)
[2023-03-23 06:18] LABS: Appearance,Urine Clear (Clear); Bilirubin,Urine Negative (Negative); Blood,Urine Negative (Negative); Color,Urine Light Yellow; Glucose,Urine (UA) Negative (Negative); Ketones,Urine Negative (Negative); Leukocyte Esterase,Urine Negative (Negative); Nitrite,Urine Negative (Negative); PH, Urine 6.5 (5.0-8.0); Protein,Urine Negative (Negative); Specific Gravity,Urine 1.012 (1.001-1.035); Urobilinogen,Urine <2.0 mg/dL (<2.0)
[2023-03-23 08:17] LABS: Basophils # (A) 0.1 k/uL (0-0.2); Basophils % (A) 1 %; Eosinophils # (A) 0.3 k/uL (0-0.7); Eosinophils % (A) 2 %; HCT 42.2 % (39.0-53.0); Lymphocytes # (A) 2.9 k/uL (1.0-4.8); Lymphocytes % (A) 27 %; MCH 31.3 pg (25.0-35.0); MCHC 33.1 g/dL (31.0-37.0); MCV 94.7 fL (80.0-100.0); Mean Platelet Volume 6.9; Monocytes # (A) 0.6 k/uL (0-1.0); Monocytes % (A) 5 %; Neutrophils # (A) 6.5 k/uL (1.3-7.7); Neutrophils % (A) 61 %; Platelet Count 415 k/uL (150-450); RBC 4.46 m/uL (4.30-5.90); RDW 12.6 % (11.5-15.5); WBC 10.7 k/uL (3.8-10.6)
[2023-03-23 08:27] LABS: African American GFR (CKD) >90 (>60 ml/min/1.73 sqM); Anion Gap 13 mmol/L; Blood Urea Nitrogen 7 mg/dL (9-20); Calcium 8.8 mg/dL (8.4-10.2); Carbon Dioxide 19 mmol/L (22-30); Chloride 107 mmol/L (98-107); Glucose 114 mg/dL (74-99); Non-African American GFR(CKD) >90 (>60 ml/min/1.73 sqM); Potassium 3.7 mmol/L (3.5-5.1); Sodium 139 mmol/L (137-145)
[2023-03-23] MEDS: ONDANSETRON 4 MG/2 ML VIAL IVP PRN ×2 (08:38→21:25)
[2023-03-23] MEDS ORDERED: HYDROcodone/APAP 10-325MG 1 EACH TAB PO PRN (17:42)
--- NOTE | 2023-03-23 17:53 | P.CON ---
Consult Note - . Consult date: 03/23/23 Assessment/Plan:: HPI: Patient is a 43-year-old male who presents originally as a clinical evaluation. Patient was recently discharged following medical management a perforated diverticulitis. Has been having worsening abdominal pain with nausea and vomiting for the last day. Also is complaining of some left testicular pain. States primary pain is in the abdomen. Has no other acute complaints at this time. Denies any fevers. Denies constipation states he is having small bowel movements are brown in color. Denies any chest pain or shortness of breath. Presents for further evaluation at this time. He had a CT-AP showing complicated diverticulitis which is worsening with possible fluid collection. Review of Systems: CONST: Denies fever EYES: Denies blurry vision ENT: Denies nasal congestion C/V: Denies Chest pain RESP: Denies shortness of breath GI: Endorses abdominal pain : Denies dysuria SKIN: Denies rash. MSK: Denies joint pain. NEURO: Denies headache General: Appears in mild to moderate distress secondary to abdominal pain. HEAD: Normal with no signs of head trauma. EYES: PERRLA, EOMI, conjunctiva normal, no discharge. ENT: Hearing grossly intact, normal oropharynx. RESPIRATORY: Clear breath sounds bilaterally. No wheezes, rales, or rhonchi. C/V: Regular rate and rhythm. S1 and S2 auscultated, no edema, peripheral pulses 2+ and intact throughout ABD: Abdomen soft, nondistended. Tender to palpation left lower quadrant and suprapubic region. No guarding. No peritoneal signs. No rebound tenderness. Scrotal exam is unremarkable with minimal tenderness if any of the left hemiscrotum. EXT: Normal range of motion, no obvious deformity SKIN: No rashes or lesions observed on exposed skin. NEURO: Alert and oriented 4. 43 year old female with complicated diverticulitis with possible fluid collection -NPO -IV fluids -Zosyn -Pain and Nausea Control -Will repeat CT-AP in am -Patient may need IR drainage of fluid collection or possible surgical intervention. Will check labs and CT in morning and further recs pending
[2023-03-23] MEDS: SODIUM CHLORIDE 0.9% 1,000 ML IV SCH (18:24)
[2023-03-23 18:35] LABS: African American GFR (CKD) >90 (>60 ml/min/1.73 sqM); Anion Gap 9 mmol/L; Blood Urea Nitrogen 8 mg/dL (9-20); Calcium 8.8 mg/dL (8.4-10.2); Carbon Dioxide 25 mmol/L (22-30); Chloride 104 mmol/L (98-107); Glucose 83 mg/dL (74-99); Non-African American GFR(CKD) >90 (>60 ml/min/1.73 sqM); Potassium 3.7 mmol/L (3.5-5.1); Sodium 138 mmol/L (137-145)
[2023-03-24] MEDS: SODIUM CHLORIDE 0.9% 1,000 ML IV SCH ×3 (01:52→18:02)
[2023-03-24] MEDS: MORPHINE SULFATE 4 MG/ML SYRINGE IVP PRN ×2 (03:36→08:26)
[2023-03-24] MEDS: ONDANSETRON 4 MG/2 ML VIAL IVP PRN ×2 (03:41→10:02)
[2023-03-24] MEDS: PIPERACILLIN-TAZOBACTAM 3.375 GM in SODIUM CHLORIDE 0.9% 100 ML IVPB SCH ×3 (05:58→21:18)
[2023-03-24] MEDS: IOPAMIDOL CONTRAST (ORAL USE) VIAL PO PRN ×2 (06:58→08:08)
[2023-03-24 07:43] LABS: Basophils # (A) 0.1 k/uL (0-0.2); Basophils % (A) 1 %; Eosinophils # (A) 0.2 k/uL (0-0.7); Eosinophils % (A) 2 %; HCT 39.3 % (39.0-53.0); HGB 13.2 gm/dL (13.0-17.5); Lymphocytes # (A) 2.6 k/uL (1.0-4.8); Lymphocytes % (A) 26 %; MCH 31.3 pg (25.0-35.0); MCHC 33.5 g/dL (31.0-37.0); MCV 93.4 fL (80.0-100.0); Mean Platelet Volume 6.8; Monocytes # (A) 0.6 k/uL (0-1.0); Monocytes % (A) 6 %; Neutrophils # (A) 6.2 k/uL (1.3-7.7); Neutrophils % (A) 62 %; Platelet Count 425 k/uL (150-450); RDW 12.5 % (11.5-15.5); WBC 9.9 k/uL (3.8-10.6)
[2023-03-24 07:52] LABS: Prothrombin Time 10.6 sec (9.0-12.0)
--- NOTE | 2023-03-24 09:32 | P.PN ---
Progress Note - Text Progress Note Date: 03/24/23 The patient feels better today. Patient states his pain has improved. He is currently hungry. On exam vital signs appear stable. Abdomen soft. There is minimal left lower quadrant tenderness. History of perforated diverticulitis. The patient is clinically improved. He will start on clear liquid diet later today. He has another CAT scan pending.
--- NOTE | 2023-03-24 11:28 | CT ---
EXAMINATION TYPE: CT abdomen pelvis w con CT DLP: 2505.6 mGycm, Automated exposure control for dose reduction was used. DATE OF EXAM: 03/24/2023 8:49 AM COMPARISON: CT abdomen pelvis 03/22/2023 CLINICAL INDICATION:Male, 43 years old with history of Abscess; abd pain TECHNIQUE: Axial CT of the abdomen and pelvis. Sagittal and coronal reformats were created on a [employer] workstation. Contrast used:100 mL of Isovue 300 with IV Contrast, (none if empty) Oral contrast used: with Oral Contrast (none if empty) FINDINGS: LOWER CHEST: Mild posterior dependent subsegmental atelectasis is noted. ABDOMEN LIVER: Probable mild fatty infiltration otherwise unremarkable. GALLBLADDER AND BILE DUCTS: Status post cholecystectomy. PANCREAS: Unremarkable. SPLEEN: Unremarkable. ADRENAL GLANDS: Unremarkable. KIDNEYS AND URETERS: No evidence of hydronephrosis or renal calculus. The ureters are unremarkable. PELVIS BLADDER: Incompletely distended with a mildly thickened appearance of its wall. REPRODUCTIVE: Unremarkable. ABDOMEN & PELVIS STOMACH AND BOWEL: Thickened appearance of the sigmoid colon wall with numerous regional diverticula and surrounding fat stranding again noted. Cranial and slightly posterior to this, a fluid and gas co ntaining collection measuring 5.7 x 3.1 cm series 201 image 76 shows no significant interval change. Multiple other small foci of extraluminal gas within the pelvis suggestive of pneumoperitoneum also a ppear similar to previous. Contrast traverses the stomach and small bowel. No evidence of bowel obstr uction. Normal-appearing appendix. Fatty infiltration of the ileocecal valve. PERITONEUM/RETROPERITONEUM: No free fluid or pneumoperitoneum seen in the abdomen. VASCULATURE: No evidence of aortic aneurysm. MUSCULOSKELETAL: No acute osseous abnormalities. Mild degenerative changes of the lumbar spine, degen erative disk disease greatest L4-L5. LYMPH NODES: No gross evidence for lymphadenopathy. SOFT TISSUE/ABDOMINAL WALL: No acute finding. Tiny fat-containing umbilical hernia. IMPRESSION: 1. Similar findings in the pelvis compared to 03/22/2023, suggestive of perforated sigmoid diverticul itis/colitis, with essentially stable fluid and gas containing 5.7 x 3.1 cm collection adjacent to th e sigmoid as well as several other small foci of pneumoperitoneum present around the sigmoid colon. 2. Thickened appearance of the urinary bladder wall, could be due to incomplete distention, but alena elate clinically to exclude cystitis.
[2023-03-25] MEDS: SODIUM CHLORIDE 0.9% 1,000 ML IV SCH ×3 (00:38→22:33)
[2023-03-25] MEDS: PIPERACILLIN-TAZOBACTAM 3.375 GM in SODIUM CHLORIDE 0.9% 100 ML IVPB SCH ×3 (05:33→22:32)
--- NOTE | 2023-03-25 13:27 | P.PN ---
Subjective Progress Note Date: 03/25/23 CHIEF COMPLAINT: Perforated diverticulitis HISTORY OF PRESENT ILLNESS: Patient denies any abdominal pain. His nausea and vomiting resolved. Computed tomography scan abdomen and pelvis reports a similar findings in the pelvis compared to 03/22/2023 suggestive of perforated sigmoid diverticulitis/colitis with essentially stable fluid and gas containing a 5.7 x 3.1 cm collection adjacent to the sigmoid as well as several other small foci of pneumoperitoneum present around the sigmoid colon. Afebrile. WBC is down from 10.7-9.9 Hgb 13.2 PHYSICAL EXAM: VITAL SIGNS: Reviewed. GENERAL: Well-developed in no acute distress. ABDOMEN: Soft. Nondistended. Nontender. NEUROLOGIC: Alert and oriented. Cranial nerves II through XII grossly intact. ASSESSMENT: 1. Perforated sigmoid diverticulitis with diverticular abscess PLAN: -Consult infectious disease for antibiotic recommendations -Consult medicine service for medical management -Consult IR service for PICC line placement for IV antibiotics -Continue supportive care Physician Robotics Software Engineer note has been reviewed by physician. Signing provider agrees with the documented findings, assessment, and plan of care. I have personally seen and examined the patient, reviewed the SLATE CUTTER /PAs history, exam and MDM and agree with the assessment and plan as written. Based on total visit time, I have performed more than 50% of the visit. As above: Patient came back to the hospital 2 days after discharge. Patient had increased abdominal pain after eating solid foods. Since admission pain has been minimal if any. CAT scan shows residual abscess. This does not appear to be amenable to percutaneous drainage. Patient and I discussed surgical intervention which very well could lead to temporary ostomy. Patient is not interested in surgery at this time stating that his father had a colostomy and he does not want one. At this time we'll consult infectious disease and scheduled for PICC line placement. Consider outpatient IV antibiotic therapy to see if this area responds to nonoperative management. Risks of increased morbidity if surgery is performed at a later date reviewed with patient. He would like to proceed with nonoperative approach at this time. We'll consult medical service as well. May advance to full liquid diet. Objective - Vital Signs Vital signs: Vital Signs Temp 97.6 F 03/25/23 07:13 Pulse 67 03/25/23 09:11 Resp 16 03/25/23 09:11 BP 143/83 03/25/23 07:13 Pulse Ox 98 03/25/23 07:13 FiO2 Intake & Output 03/24/23 03/25/23 03/25/23 18:59 06:59 18:59 Other: # Voids 4 0 # Bowel Movements 2 - Labs CBC & Chem 7: 03/25/23 08:33 03/23/23 18:09
[2023-03-25 15:41] LABS: Basophils # (A) 0.06 X 10*3/uL (0.00-0.10); Basophils % (A) 0.8 %; Eosinophils # (A) 0.16 X 10*3/uL (0.04-0.35); HCT 41.2 % (39.6-50.0); HGB 13.9 d/dL (13.0-17.0); Lymphocytes # (A) 2.19 X 10*3/uL (0.90-5.00); Lymphocytes % (A) 27.9 %; MCH 30.7 pg (27.0-32.0); MCHC 33.7 d/dL (32.0-37.0); MCV 90.9 FL (80.0-97.0); Mean Platelet Volume 8.7 FL (9.5-12.2); Monocytes # (A) 0.41 X 10*3/uL (0.20-1.00); Monocytes % (A) 5.2 %; NRBC Per 100 WBC 0 X 10*3/uL (0.00-0.01); Neutrophils # (A) 4.96 X 10*3/uL (1.80-7.70); Neutrophils % (A) 63.2 %; Platelet Count 453 X 10*3/uL (140-440); RBC 4.53 X 10*6/uL (4.40-5.60); WBC 7.85 X 10*3/uL (4.50-10.00)
[2023-03-25] MEDS: NYSTATIN 100,000 UNIT/ML SUSP 500,000 UNIT/5 ML CUP PO SCH ×2 (19:18→22:47)
[2023-03-25] MEDS ORDERED: BACLOFEN 10 MG TAB PO PRN (21:07)
--- NOTE | 2023-03-25 21:09 | P.CONS ---
History of Present Illness - Reason for Consult Consult date: 03/25/23 Medical management Requesting physician: Edgar Trotter - Chief Complaint Abdominal pain - History of Present Illness This is a pleasant 43-year-old patient, follows with Dr. Corey Cabral. Patient recently hospital from March 17 through March 21. Admitted with acute diverticulitis with perforation. Put on IV Zosyn and Flagyl. Was symptom-free and was discharged by surgery. Levaquin. Next a patient started out with severe lower abdominal pain with nausea vomiting . Readmitted. Found to have worsening perforated diverticulitis with increasing pneumoperitoneum. At both free fluid feces leading posterior to the sigmoid colon the pelvis. Patient started IV Zosyn. IV fluids. Today, no abdominal pain. Having some loose stool. Put on a full liquid diet by surgery. PICC line ordered. Review of systems: GEN.: None EYES: None HEENT: None NECK: None RESPIRATORY: None CARDIOVASCULAR: None GASTROINTESTINAL: As above GENITOURINARY: None MUSCULOSKELETAL: None LYMPHATICS: None HEMATOLOGICAL: None PSYCHIATRY: None NEUROLOGICAL: None Past medical history to include: GERD, hypertension, hyperlipidemia, low back pain with spasms, acute otitis with perforation Social history: . . Alcohol rarely. Smokes a pack a day for last 27 years. 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 Conjunctiva normal. HEENT: External appearance of nose and ears normal, oral cavity grossly normal. NECK: JVD not raised; masses not palpable. HEART: First and second heart sounds are normal; no edema. LUNGS: Respiratory rate normal; clear to auscultation. ABDOMEN: Soft, no tenderness, no guarding rigidity, liver spleen not palpable, no masses palpable. PSYCH: [Alert and oriented x3; mood and affect tired l. MUSCULOSKELETAL:No Clubbing/cyanosis;muscles-grossly intact NEUROLOGICAL: Cranial nerves grossly intact; no facial asymmetry, power and sensation grossly intact. LYMPHATICS: No lymph nodes palpable in the axilla and neck INVESTIGATIONS, reviewed in the clinical context: March 25: White count 7.8 hemoglobin 13.9 platelets 453 potassium 3.7 BUN 8 creatinine 0.82 Assessment and plan: -Acute diverticulitis with perforation with a tracking down to the mesentery. Presenting initially in March 17. Discharged on March 21. Readmitted with worsening pain March 22. Computed tomography scan shows worsening.: Clinical improvement Full liquids IV Zosyn, for PICC line -Morbid obesity BMI 42 Outpatient, weight loss measures -Essential hypertension Lisinopril 5 mg a day -GERD PPI -Chronic lower back pain with muscle spasms Baclofen when necessary. -Hyperlipidemia Lipitor 40 mg -Chronic nicotine dependence, cigarette smoker Chantix. Full liquids. IV Zosyn. PICC line. Discussed with patient. Activity started. Subcu Lovenox. Past Medical History Past Medical History: No Reported History Additional Past Medical History / Comment(s): divirticulitis History of Any Multi-Drug Resistant Organisms: None Reported Past Surgical History: Cholecystectomy Smoking Status: Current every day smoker Past Alcohol Use History: Rare Past Drug Use History: None Reported Medications and Allergies Home Medications Medication Instructions Recorded Confirmed Type Acetaminophen Tab [Tylenol] 1,000 mg PO Q6HR PRN 03/17/23 03/22/23 History Atorvastatin [Lipitor] 40 mg PO DAILY 03/17/23 03/22/23 History Baclofen 10 mg PO TID PRN 03/17/23 03/22/23 History Ibuprofen [Motrin] 800 mg PO TID-W/MEALS PRN 03/17/23 03/22/23 History Omeprazole 40 mg PO DAILY 03/17/23 03/22/23 History Varenicline Tartrate 1 mg PO BID 03/17/23 03/22/23 History lisinopriL [Zestril] 5 mg PO DAILY 03/17/23 03/22/23 History Levofloxacin [Levaquin] 750 mg PO DAILY 1 Days #10 tab 03/21/23 03/22/23 Rx Allergies Allergy/AdvReac Type Severity Reaction Status Date / Time No Known Allergies Allergy Verified 03/22/23 14:28 Physical Exam Vitals: Vital Signs Temp Pulse Resp BP Pulse Ox 03/25/23 19:37 98.6 F 83 18 139/77 95 03/25/23 13:31 98.2 F 71 14 150/85 96 03/25/23 09:11 67 16 03/25/23 07:13 97.6 F 67 16 143/83 98 03/25/23 01:05 98.1 F 73 18 151/84 98 Intake and Output 03/25/23 03/25/23 03/25/23 06:59 14:59 22:59 Other: # Voids 0 Results CBC & Chem 7: 03/25/23 08:33 03/23/23 18:09 Labs: Abnormal Lab Results - Last 24 Hours (Table) 03/25/23 Range/Units 08:33 Plt Count 453 H (140-440) X 10*3/uL MPV 8.7 L (9.5-12.2) FL
[2023-03-25] MEDS: lisinopriL 5 MG TAB PO SCH (22:32)
[2023-03-25] MEDS: ATORVASTATIN 40 MG TAB PO SCH (22:32)
[2023-03-25] MEDS: ENOXAPARIN 40 MG/0.4 ML SYRINGE SQ SCH (22:32)
[2023-03-25] MEDS: VARENICLINE 1 MG TAB PO SCH (22:33)
[2023-03-25] MEDS: PANTOPRAZOLE 40 MG TABLET PO SCH (22:35)
--- NOTE | 2023-03-26 06:01 | P.CONS ---
History of Present Illness - Reason for Consult Consult date: 03/25/23 Diverticular abscess Requesting physician: Ha Perez - Chief Complaint Abdominal pain x few days - History of Present Illness Patient is a 43-year-old male with a past medical history pertinent for diverticulitis presenting to the hospital 3 days ago for evaluation of abdominal pain patient apparently was recently admitted to the hospital for multiple falls to March 21 with the patient was treated for perforated diverticulitis and subsequently discharged home on oral Levaquin for 10 days however the patient presented within 24 hours to the hospital with worsening abdominal pain patient pain was mostly to the lower abdominal area and some central describing the pain to be sharp almost 10 out of 10 in severity without any radiation patient complaining of some nausea but no vomiting no chest pain no shortness of breath or cough no diarrhea patient on presentation to the hospital was afebrile and no fever has been recorded subsequently patient did have a white count of 12.9 on admission white count subsequently normalized creatinine has been normal urine was negative patient did have a abdominal pelvis CT on admission repeated yesterday morning with evidence of perforated sigmoid diverticulitis stable finding gas-containing 5.7 x 3.1 cm collection patient is currently on Zosyn and infectious he was consulted for further management of antibiotic therapy and possible outpatient IV biotic as the patient has failed oral antibiotic on discharge Review of Systems Positive point and negatives has been mentioned in the HPI, complete review of systems was performed and all other systems are negative Past Medical History Past Medical History: No Reported History Additional Past Medical History / Comment(s): divirticulitis History of Any Multi-Drug Resistant Organisms: None Reported Past Surgical History: Cholecystectomy Smoking Status: Current every day smoker Past Alcohol Use History: Rare Past Drug Use History: None Reported Medications and Allergies Home Medications Medication Instructions Recorded Confirmed Type Acetaminophen Tab [Tylenol] 1,000 mg PO Q6HR PRN 03/17/23 03/22/23 History Atorvastatin [Lipitor] 40 mg PO DAILY 03/17/23 03/22/23 History Baclofen 10 mg PO TID PRN 03/17/23 03/22/23 History Ibuprofen [Motrin] 800 mg PO TID-W/MEALS PRN 03/17/23 03/22/23 History Omeprazole 40 mg PO DAILY 03/17/23 03/22/23 History Varenicline Tartrate 1 mg PO BID 03/17/23 03/22/23 History lisinopriL [Zestril] 5 mg PO DAILY 03/17/23 03/22/23 History Allergies Allergy/AdvReac Type Severity Reaction Status Date / Time No Known Allergies Allergy Verified 03/22/23 14:28 Physical Exam Vitals: Vital Signs Temp Pulse Resp BP Pulse Ox 03/25/23 09:11 67 16 03/25/23 07:13 97.6 F 67 16 143/83 98 03/25/23 01:05 98.1 F 73 18 151/84 98 03/24/23 19:55 98.3 F 68 18 158/85 97 03/24/23 14:50 98.6 F 72 18 131/75 95 Intake and Output 03/24/23 03/25/23 03/25/23 22:59 06:59 14:59 Other: # Voids 4 0 # Bowel Movements 2 GENERAL DESCRIPTION: Middle-aged male lying in bed, no distress. No tachypnea or accessory muscle of respiration use. HEENT: Shows Pallor , no scleral icterus. Oral mucous membrane is dry. NECK: Trachea central, no thyromegaly. LUNGS: Unlabored breathing. Clear to auscultation anteriorly. No wheeze or crackle. HEART: S1, S2, regular rate and rhythm. No loud murmur ABDOMEN: Soft, no tenderness EXTREMITIES: No edema of feet. SKIN: No rash, no masses palpable. NEUROLOGICAL: The patient is awake, alert, oriented x3, mood and affect normal. Results CBC & Chem 7: 03/26/23 06:31 03/23/23 18:09 Assessment and Plan (1) Intra-abdominal abscess Current Visit: Yes Status: Acute Code(s): K65.1 - PERITONEAL ABSCESS SNOMED Code(s): 95844325 (2) Perforated diverticulum of large intestine Current Visit: Yes Status: Acute Code(s): K57.20 - DVTRCLI OF LG INT W PERFORATION AND ABSCESS W/O BLEEDING SNOMED Code(s): 072053635 Plan: 1patient with a complicated history with a perforated diverticulitis and abscess with readmission to the hospital after the patient was sent home on oral antibiotics we will need to cover for the resistant gram-negative both aerobes and anaerobes unfortunately abscess cannot be drained CT-guided there would have help decrease the burden of infection and also identify infected pathogen 2-patient will likely need PICC line for outpatient IV antibiotics 3-patient to continue with Zosyn 3 .375 g every 8 hours We will follow on clinical condition and cultures to further adjust medication if needed Thank you for this consultation we will follow the patient along with you Dictation was produced using [employer] dictation software. please excuse any grammatical, word or spelling errors. Time with Patient: Greater than 30
[2023-03-26] MEDS: PIPERACILLIN-TAZOBACTAM 3.375 GM in SODIUM CHLORIDE 0.9% 100 ML IVPB SCH ×3 (06:22→21:01)
[2023-03-26] MEDS ORDERED: LIDOCAINE 1% INJ 10MG/ML (5 ML VIAL-PF) SQ ONE (08:39)
[2023-03-26] MEDS: lisinopriL 5 MG TAB PO SCH (09:02)
[2023-03-26] MEDS: NYSTATIN 100,000 UNIT/ML SUSP 500,000 UNIT/5 ML CUP PO SCH ×4 (09:02→21:01)
[2023-03-26] MEDS: ATORVASTATIN 40 MG TAB PO SCH (09:02)
[2023-03-26] MEDS: ENOXAPARIN 40 MG/0.4 ML SYRINGE SQ SCH (09:02)
[2023-03-26] MEDS: VARENICLINE 1 MG TAB PO SCH ×2 (09:02→21:01)
[2023-03-26] MEDS: PANTOPRAZOLE 40 MG TABLET PO SCH (09:02)
[2023-03-26 11:06] LABS: Basophils # (A) 0.07 X 10*3/uL (0.00-0.10); Basophils % (A) 0.9 %; Eosinophils # (A) 0.16 X 10*3/uL (0.04-0.35); HCT 40.1 % (39.6-50.0); HGB 13.9 d/dL (13.0-17.0); Lymphocytes # (A) 2.67 X 10*3/uL (0.90-5.00); Lymphocytes % (A) 33.8 %; MCH 30.7 pg (27.0-32.0); MCHC 34.7 d/dL (32.0-37.0); MCV 88.5 FL (80.0-97.0); Mean Platelet Volume 8.6 FL (9.5-12.2); Monocytes # (A) 0.63 X 10*3/uL (0.20-1.00); NRBC Per 100 WBC 0 X 10*3/uL (0.00-0.01); Neutrophils % (A) 54.4 %; Platelet Count 473 X 10*3/uL (140-440); RBC 4.53 X 10*6/uL (4.40-5.60); RDW 12.1 % (11.5-14.5)
--- NOTE | 2023-03-26 12:00 | IR ---
PICC LINE PLACEMENT: HISTORY: Infection requiring long-term antibiotic therapy PROCEDURE: Ultrasound and fluoroscopic guidance of PICC line placement. COMPLICATIONS: None ANESTHESIA: 1. 1% Lidocaine locally. FINDINGS/TECHNIQUE: The procedure was explained to the patient. The risks, complications, benefits and alternatives were discussed and any questions were answered. Informed consent was obtained. The patient was placed supine on the fluoroscopic table and prepped and draped in the usual sterile fash ion. Utilizing a 21 gauge needle and sonographic and fluoroscopic guidance, access in the left basi lic vein was achieved and there is placement of a 0.018 guidewire. The vein is patent. A 4-F sheath was placed over the guidewire. The guidewire and dilator were removed and a 4-F. PICC line was plac ed through the sheath with the tip at the level of the SVC. The sheath was removed, the catheter was flushed and sutured into position. The patient was stable throughout the procedure and remained sta ble upon discharge from the Department of Radiology. The vein puncture was patent under ultrasound. A vázquez scale image was obtained to document patency of the vein punctured. All elements of the maximal barrier technique were utilized. FLUOROSCOPY TIME: DAP 0.209Gy cm2 IMPRESSION: Successful PICC line placement under ultrasound and fluoroscopic guidance.
--- NOTE | 2023-03-26 13:06 | P.PN ---
Subjective Progress Note Date: 03/26/23 Principal diagnosis: Diverticulitis with abscess Patient is a 43-year-old male with a past medical history pertinent for diverticulitis readmitted to the hospital for diverticulitis with abscess failing outpatient oral Levaquin therapy. On today's evaluation that is 03/26/2023, the patient remains to be afebrile the patient is breathing comfortably on room air, the patient denies having any chest pain shortness of breath or cough, patient denies abdominal pain and no nausea/vomiting /diarrhea, patient is feeling better . Patient white count is 7.90, creatinine 0.82 Objective - Vital Signs Vital signs: Vital Signs Temp 98.6 F 03/26/23 08:15 Pulse 71 03/26/23 08:15 Resp 17 03/26/23 08:15 BP 138/83 03/26/23 08:15 Pulse Ox 96 03/26/23 08:15 FiO2 Intake & Output 03/25/23 03/26/23 03/26/23 18:59 06:59 18:59 Other: Voiding Method Toilet Toilet Urinal Urinal # Voids 1 - Exam GENERAL DESCRIPTION: Middle-age male lying in bed in no distress RESPIRATORY SYSTEM: Unlabored breathing , decreased breath sounds at bases HEART: S1 S2 regular rate and rhythm , ABDOMEN: Soft , no tenderness EXTREMITIES: No edema feet - Labs CBC & Chem 7: 03/26/23 06:31 03/23/23 18:09 Labs: Abnormal Lab Results - Last 24 Hours (Table) 03/25/23 03/26/23 Range/Units 08:33 06:31 Plt Count 453 H 473 H (140-440) X 10*3/uL MPV 8.7 L 8.6 L (9.5-12.2) FL Assessment and Plan (1) Intra-abdominal abscess Current Visit: Yes Status: Acute Code(s): K65.1 - PERITONEAL ABSCESS SNOMED Code(s): 38221422 (2) Perforated diverticulum of large intestine Current Visit: Yes Status: Acute Code(s): K57.20 - DVTRCLI OF LG INT W PERFORATION AND ABSCESS W/O BLEEDING SNOMED Code(s): 450740699 Plan: 1patient with a complicated history with a perforated diverticulitis and abscess with readmission to the hospital after the patient was sent home on oral antibiotics we will need to cover for the resistant gram-negative both aerobes and anaerobes unfortunately abscess cannot be drained CT-guided there would have help decrease the burden of infection and also identify infected pathogen 2-patient did get PICC line , plan is for Zosyn 4.5 g every 8 hours for [address] of abdominal pelvis to be done befor completion of his antibiotic therapy to make sure resolution of the abscess Questions Answered Dictation was produced using [employer] dictation software. please excuse any grammatical, word or spelling errors. Time with Patient: Less than 30
--- NOTE | 2023-03-26 15:53 | P.PN ---
Subjective Progress Note Date: 03/26/23 CHIEF COMPLAINT: Perforated diverticulitis HISTORY OF PRESENT ILLNESS: Patient denies any abdominal pain. He denies any nausea or vomiting. He did get PICC line placed. IV antibiotics are arranged for outpatient. Afebrile. WBC 7.90 PHYSICAL EXAM: VITAL SIGNS: Reviewed. GENERAL: Well-developed in no acute distress. ABDOMEN: Soft. Nondistended. Nontender. NEUROLOGIC: Alert and oriented. Cranial nerves II through XII grossly intact. ASSESSMENT: 1. Perforated sigmoid diverticulitis with diverticular abscess PLAN: -Continue to monitor -Discussed case with infectious disease. IV antibiotics are arranged for outpatient Physician Materials Planner note has been reviewed by physician. Signing provider agrees with the documented findings, assessment, and plan of care. I have personally seen and examined the patient, reviewed the VACATION GUIDE /PAs history, exam and MDM and agree with the assessment and plan as written. Based on total visit time, I have performed more than 50% of the visit. As above: Patient doing well today. Still no abdominal pain. He is afebrile with no tachycardia. PICC line was placed. The patient still interested in nonoperative approach. Continue with plans for discharge on IV antibiotics. Repeat CAT scan to 3 weeks from now. Objective - Vital Signs Vital signs: Vital Signs Temp 98.6 F 03/26/23 08:15 Pulse 71 03/26/23 08:15 Resp 17 03/26/23 08:15 BP 138/83 03/26/23 08:15 Pulse Ox 96 03/26/23 08:15 FiO2 Intake & Output 03/25/23 03/26/23 03/26/23 18:59 06:59 18:59 Other: Voiding Method Toilet Toilet Urinal Urinal # Voids 1 - Labs CBC & Chem 7: 03/26/23 06:31 03/23/23 18:09 Labs: Abnormal Lab Results - Last 24 Hours (Table) 03/25/23 03/26/23 Range/Units 08:33 06:31 Plt Count 453 H 473 H (140-440) X 10*3/uL MPV 8.7 L 8.6 L (9.5-12.2) FL
[2023-03-26] MEDS: SODIUM CHLORIDE 0.9% 1,000 ML IV SCH (17:31)
--- NOTE | 2023-03-26 19:54 | P.PN ---
Progress Note - Text Progress Note Date: 03/26/23 - Chief Complaint Abdominal pain Hospital course: This is a pleasant 43-year-old patient, follows with Dr. Corey Cabral. Patient recently hospital from March 17 through March 21. Admitted with acute diverticulitis with perforation. Put on IV Zosyn and Flagyl. Was symptom-free and was discharged by surgery. Levaquin. Next a patient started out with severe lower abdominal pain with nausea vomiting. Readmitted. Found to have worsening perforated diverticulitis with increasing pneumoperitoneum. At both free fluid feces leading posterior to the sigmoid colon the pelvis. Patient started IV Zosyn. IV fluids. Today, no abdominal pain. Having some loose stool. Put on a full liquid diet by surgery. PICC line ordered. March 26: Left arm PICC line placed. No abnormal pain. Some loose stools. Full liquid diet. Has been out of bed. manager pathology arranging home antibiotics. Active Medications Hydrocodone Bitart/Acetaminophen (Hydrocodone/Apap 10-325mg 1 Each Tab) 1 each PO Q6HR PRN PRN Reason: Pain Last Admin: 03/24/23 14:21 Dose: 1 each Atorvastatin Calcium (Atorvastatin 40 Mg Tab) 40 mg PO DAILY [facility] Last Admin: 03/26/23 09:02 Dose: 40 mg Baclofen (Baclofen 10 Mg Tab) 10 mg PO TID PRN PRN Reason: Muscle Spasm Enoxaparin Sodium (Enoxaparin 40 Mg/0.4 Ml Syringe) 40 mg SQ DAILY [facility] Last Admin: 03/26/23 09:02 Dose: 40 mg Piperacillin Sod/Tazobactam (Sod 3.375 gm/ Sodium Chloride) 100 mls @ 25 mls/hr IVPB Q8H [facility]; Protocol Last Admin: 03/26/23 14:01 Dose: 25 mls/hr Sodium Chloride (Saline 0.9%) 1,000 mls @ 75 mls/hr IV .[id number] [facility] Last Admin: 03/26/23 17:31 Dose: Not Given Lisinopril (Lisinopril 5 Mg Tab) 5 mg PO DAILY [facility] Last Admin: 03/26/23 09:02 Dose: 5 mg Morphine Sulfate (Morphine Sulfate 4 Mg/Ml Syringe) 4 mg IVP Q4HR PRN PRN Reason: Pain Last Admin: 03/24/23 08:26 Dose: 4 mg Nystatin (Nystatin 100,000 Unit/Ml Susp 500,000 Unit/5 Ml Cup) 500,000 unit PO QID [facility]; Protocol Last Admin: 03/26/23 18:06 Dose: 500,000 unit Ondansetron HCl (Ondansetron 4 Mg/2 Ml Vial) 4 mg IVP Q6HR PRN PRN Reason: Nausea And Vomiting Last Admin: 03/24/23 10:02 Dose: 4 mg Pantoprazole Sodium (Pantoprazole 40 Mg Tablet) 40 mg PO DAILY [facility] Last Admin: 03/26/23 09:02 Dose: 40 mg Varenicline (Varenicline 1 Mg Tab) 1 mg PO BID [facility] Last Admin: 03/26/23 09:02 Dose: 1 mg Past medical history to include: GERD, hypertension, hyperlipidemia, low back pain with spasms, acute otitis with perforation Social history: . . Alcohol rarely. Smokes a pack a day for last 27 years. 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 Conjunctiva normal. HEENT: External appearance of nose and ears normal, oral cavity grossly normal. NECK: JVD not raised; masses not palpable. HEART: First and second heart sounds are normal; no edema. LUNGS: Respiratory rate normal; clear to auscultation. ABDOMEN: Soft, no tenderness, no guarding rigidity, liver spleen not palpable, no masses palpable. PSYCH: [Alert and oriented x3; mood and affect tired l. MUSCULOSKELETAL:No Clubbing/cyanosis;muscles-grossly intact INVESTIGATIONS, reviewed in the clinical context: March 26: White count 7.9 hemoglobin 13.9 platelets 473 March 25: White count 7.8 hemoglobin 13.9 platelets 453 potassium 3.7 BUN 8 creatinine 0.82 Assessment and plan: -Acute diverticulitis with perforation with a tracking down to the mesentery. Presenting initially in March 17. Discharged on March 21. Readmitted with worsening pain March 22. Computed tomography scan shows worsening.: Clinical improvement Full liquids IV Zosyn, PICC line placed -Morbid obesity BMI 42 Outpatient, weight loss measures -Essential hypertension Lisinopril 5 mg a day -GERD PPI -Chronic lower back pain with muscle spasms Baclofen when necessary. -Hyperlipidemia Lipitor 40 mg -Chronic nicotine dependence, cigarette smoker Chantix. Full liquids. IV Zosyn. PICC line. Raised. Home antibiotics being arranged. Past Medical History Past Medical History: No Reported History Additional Past Medical History / Comment(s): divirticulitis History of Any Multi-Drug Resistant Organisms: None Reported Past Surgical History: Cholecystectomy Smoking Status: Current every day smoker Past Alcohol Use History: Rare Past Drug Use History: None Reported Medications and Allergies Home Medications Medication Instructions Recorded Confirmed Type Acetaminophen Tab [Tylenol] 1,000 mg PO Q6HR PRN 03/17/23 03/22/23 History Atorvastatin [Lipitor] 40 mg PO DAILY 03/17/23 03/22/23 History Baclofen 10 mg PO TID PRN 03/17/23 03/22/23 History Ibuprofen [Motrin] 800 mg PO TID-W/MEALS PRN 03/17/23 03/22/23 History Omeprazole 40 mg PO DAILY 03/17/23 03/22/23 History Varenicline Tartrate 1 mg PO BID 03/17/23 03/22/23 History lisinopriL [Zestril] 5 mg PO DAILY 03/17/23 03/22/23 History Levofloxacin [Levaquin] 750 mg PO DAILY 1 Days #10 tab 03/21/23 03/22/23 Rx Allergies Allergy/AdvReac Type Severity Reaction Status Date / Time No Known Allergies Allergy Verified 03/22/23 14:28 Physical Exam Vitals: Vital Signs Temp Pulse Resp BP Pulse Ox 03/25/23 19:37 98.6 F 83 18 139/77 95 03/25/23 13:31 98.2 F 71 14 150/85 96 03/25/23 09:11 67 16 03/25/23 07:13 97.6 F 67 16 143/83 98 03/25/23 01:05 98.1 F 73 18 151/84 98 Intake and Output 03/25/23 03/25/23 03/25/23 06:59 14:59 22:59 Other: # Voids 0 Results CBC & Chem 7: 03/25/23 08:33 03/23/23 18:09 Labs: Abnormal Lab Results - Last 24 Hours (Table) 03/25/23 Range/Units 08:33 Plt Count 453 H (140-440) X 10*3/uL MPV 8.7 L (9.5-12.2) [place] Additional CC's: Zev Cabral
[2023-03-27] MEDS: SODIUM CHLORIDE 0.9% 1,000 ML IV SCH (05:35)
[2023-03-27] MEDS: PIPERACILLIN-TAZOBACTAM 3.375 GM in SODIUM CHLORIDE 0.9% 100 ML IVPB SCH ×2 (05:51→13:40)
[2023-03-27] MEDS: NYSTATIN 100,000 UNIT/ML SUSP 500,000 UNIT/5 ML CUP PO SCH ×3 (08:12→17:49)
[2023-03-27] MEDS: lisinopriL 5 MG TAB PO SCH (08:13)
[2023-03-27] MEDS: PANTOPRAZOLE 40 MG TABLET PO SCH (08:13)
[2023-03-27] MEDS: ENOXAPARIN 40 MG/0.4 ML SYRINGE SQ SCH (08:13)
[2023-03-27] MEDS: ATORVASTATIN 40 MG TAB PO SCH (08:13)
[2023-03-27] MEDS: VARENICLINE 1 MG TAB PO SCH (08:13)
[2023-03-27 09:00] VITALS: TEMP 97.8
--- NOTE | 2023-03-27 12:29 | P.PN ---
Subjective Progress Note Date: 03/27/23 Principal diagnosis: Diverticulitis with abscess Patient is a 43-year-old male with a past medical history pertinent for diverticulitis readmitted to the hospital for diverticulitis with abscess failing outpatient oral Levaquin therapy. On today's evaluation that is 03/27/2023, the patient denies any fever or any chills, the patient is breathing comfortably on room air and no need for supplemental oxygen, the patient denies chest pain or cough, patient denies nausea/vomiting and no diarrhea has been reported, patient is feeling better wants to go home Patient white count is 7.90, creatinine 0.82 as of yesterday no lab draw today Objective - Vital Signs Vital signs: Vital Signs Temp 97.8 F 03/27/23 07:55 Pulse 78 03/27/23 07:55 Resp 15 03/27/23 07:55 BP 106/67 03/27/23 07:55 Pulse Ox 96 03/27/23 07:55 FiO2 Intake & Output 03/26/23 03/27/23 03/27/23 18:59 06:59 18:59 Intake Total 1100 Balance 1100 Intake: Intake, IV Titration 1100 Amount Piperacillin-Tazobactam 3 200 .375 gm In Sodium Chloride 0.9% 100 ml @ 25 mls/hr IVPB Q8H [facility] Rx#: [id number] Sodium Chloride 0.9% 1, 900 000 ml @ 75 mls/hr IV . [id number] [facility] Rx#:[id number] Other: Voiding Method Toilet Toilet Urinal Urinal # Voids 2 - Exam GENERAL DESCRIPTION: Middle-age male lying in bed in no distress RESPIRATORY SYSTEM: Unlabored breathing , decreased breath sounds at bases HEART: S1 S2 regular rate and rhythm , ABDOMEN: Soft , no tenderness EXTREMITIES: No edema feet - Labs CBC & Chem 7: 03/26/23 06:31 03/23/23 18:09 Labs: Abnormal Lab Results - Last 24 Hours (Table) 03/26/23 Range/Units 06:31 Plt Count 473 H (140-440) X 10*3/uL MPV 8.6 L (9.5-12.2) [place] Assessment and Plan (1) Intra-abdominal abscess Current Visit: Yes Status: Acute Code(s): K65.1 - PERITONEAL ABSCESS SNOMED Code(s): 85841153 (2) Perforated diverticulum of large intestine Current Visit: Yes Status: Acute Code(s): K57.20 - DVTRCLI OF LG INT W PER FORATION AND ABSCESS W/O BLEEDING SNOMED Code(s): 718161217 Plan: 1patient with a complicated history with a perforated diverticulitis and abs cess with readmission to the hospital after the patient was sent home on oral antibiotics we will need to cover for the resistant gram-negative both aerobes and anaerobes unfortunately abscess cannot be drained CT-guided there would have help decrease the burden of infection and also identify infected pathogen 2-patient did get PICC line , plan is for Zosyn 4.5 g every 8 hours for [address] of abdominal pelvis to be done befor completion of his antibiotic therapy to make sure resolution of the abscess Antibodies has been arranged as per discussion with the keycase assembler he'll be able to go home today Dictation was produced using [email or web address] dictation software. please excuse any grammatical, word or spelling errors. Time with Patient: Less than 30
[2023-03-27 14:01] VITALS: BP 119/81; PULSE 68; RESP 16
--- NOTE | 2023-03-27 14:08 | P.PN ---
Progress Note - Text Progress Note Date: 03/27/23 - Chief Complaint Abdominal pain Hospital course: This is a pleasant 43-year-old patient, follows with Dr. Corey Cabral. Patient recently hospital from March 17 through March 21. Admitted with acute diverticulitis with perforation. Put on IV Zosyn and Flagyl. Was symptom-free and was discharged by surgery. Levaquin. Next a patient started out with severe lower abdominal pain with nausea vomiting. Readmitted. Found to have worsening perforated diverticulitis with increasing pneumoperitoneum. At both free fluid feces leading posterior to the sigmoid colon the pelvis. Patient started IV Zosyn. IV fluids. Today, no abdominal pain. Having some loose stool. Put on a full liquid diet by surgery. PICC line ordered. March 26: Left arm PICC line placed. No abnormal pain. Some loose stools. Full liquid diet. Has been out of bed. betting agency manager arranging home antibiotics. March 27: Tolerating full liquid diet. No abdominal pain. Some loose stools. Pending home antibiotics being arranged. Discussed with patient. Active Medications Hydrocodone Bitart/Acetaminophen (Hydrocodone/Apap 10-325mg 1 Each Tab) 1 each PO Q6HR PRN PRN Reason: Pain Last Admin: 03/24/23 14:21 Dose: 1 each Atorvastatin Calcium (Atorvastatin 40 Mg Tab) 40 mg PO DAILY [facility] Last Admin: 03/27/23 08:13 Dose: 40 mg Baclofen (Baclofen 10 Mg Tab) 10 mg PO TID PRN PRN Reason: Muscle Spasm Enoxaparin Sodium (Enoxaparin 40 Mg/0.4 Ml Syringe) 40 mg SQ DAILY [facility] Last Admin: 03/27/23 08:13 Dose: 40 mg Piperacillin Sod/Tazobactam (Sod 3.375 gm/ Sodium Chloride) 100 mls @ 25 mls/hr IVPB Q8H [facility]; Protocol Last Admin: 03/27/23 13:40 Dose: 25 mls/hr Sodium Chloride (Saline 0.9%) 1,000 mls @ 75 mls/hr IV .[id number] [facility] Last Admin: 03/27/23 05:35 Dose: Not Given Lisinopril (Lisinopril 5 Mg Tab) 5 mg PO DAILY [facility] Last Admin: 03/27/23 08:13 Dose: 5 mg Morphine Sulfate (Morphine Sulfate 4 Mg/Ml Syringe) 4 mg IVP Q4HR PRN PRN Reason: Pain Last Admin: 03/24/23 08:26 Dose: 4 mg Nystatin (Nystatin 100,000 Unit/Ml Susp 500,000 Unit/5 Ml Cup) 500,000 unit PO QID [facility]; Protocol Last Admin: 03/27/23 13:40 Dose: 500,000 unit Ondansetron HCl (Ondansetron 4 Mg/2 Ml Vial) 4 mg IVP Q6HR PRN PRN Reason: Nausea And Vomiting Last Admin: 03/24/23 10:02 Dose: 4 mg Pantoprazole Sodium (Pantoprazole 40 Mg Tablet) 40 mg PO DAILY [facility] Last Admin: 03/27/23 08:13 Dose: 40 mg Varenicline (Varenicline 1 Mg Tab) 1 mg PO BID [facility] Last Admin: 03/27/23 08:13 Dose: 1 mg Past medical history to include: GERD, hypertension, hyperlipidemia, low back pain with spasms, acute otitis with perforation Social history: . . Alcohol rarely. Smokes a pack a day for last 27 years. 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 Conjunctiva normal. HEENT: External appearance of nose and ears normal, oral cavity grossly normal. NECK: JVD not raised; masses not palpable. HEART: First and second heart sounds are normal; no edema. LUNGS: Respiratory rate normal; clear to auscultation. ABDOMEN: Soft, no tenderness, no guarding rigidity, liver spleen not palpable, no masses palpable. PSYCH: [Alert and oriented x3; mood and affect tired l. MUSCULOSKELETAL:No Clubbing/cyanosis;muscles-grossly intact INVESTIGATIONS, reviewed in the clinical context: March 26: White count 7.9 hemoglobin 13.9 platelets 473 March 25: White count 7.8 hemoglobin 13.9 platelets 453 potassium 3.7 BUN 8 creatinine 0.82 Assessment and plan: -Acute diverticulitis with perforation with a tracking down to the mesentery. Presenting initially in March 17. Discharged on March 21. Readmitted with worsening pain March 22. Computed tomography scan shows worsening.: Clinical improvement Full liquids IV Zosyn, 4.5 g every 8 for 2 weeks per ID ID with follow-up with outpatient computed tomography scan. PICC line placed -Morbid obesity BMI 42 Outpatient, weight loss measures -Essential hypertension Lisinopril 5 mg a day -GERD PPI -Chronic lower back pain with muscle spasms Baclofen when necessary. -Hyperlipidemia Lipitor 40 mg -Chronic nicotine dependence, cigarette smoker Chantix. Full liquids. IV Zosyn for 2 weeks. PICC line. Discussed with patient. Past Medical History Past Medical History: No Reported History Additional Past Medical History / Comment(s): divirticulitis History of Any Multi-Drug Resistant Organisms: None Reported Past Surgical History: Cholecystectomy Smoking Status: Current every day smoker Past Alcohol Use History: Rare Past Drug Use History: None Reported
--- NOTE | 2023-03-27 16:23 | P.DS ---
Providers Date of admission: 03/22/23 21:42 Expected date of discharge: 03/27/23 Attending physician: Ha Perez Consults: 03/25/23 11:17 Consult Physician Routine Consulting Provider: Dell Paz Consult Reason/Comments: Medical management Do you want consulting provider notified?: Yes Consult Physician Routine Consulting Provider: Monico Harrington Consult Reason/Comments: Diverticular abscess Do you want consulting provider notified?: Yes Primary care physician: Zev Cabral Hospital Course: Discharge diagnosis 1. Perforated sigmoid diverticulitis with diverticular abscess Hospital course This is a 43-year-old male who had recent hospitalization for perforated diverticulitis and returned back to the hospital due to increase in abdominal pain and nausea. Patient had repeat CAT scans completed on the did show a perforated sigmoid diverticulitis with stable fluid and gas containing a 5.7 x 3.1 cm collection adjacent to the sigmoid colon and several other small foci of pneumoperitoneum present around the sigmoid colon. Patient has been afebrile. He was started on IV antibiotics. And pain and nausea resolved. Patient is currently tolerating diet. He is afebrile. Denies any abdominal pain. Patient will be discharged with IV antibiotics. Home care has been arranged. Patient will have computed tomography scan of pelvis repeated in 2 weeks. Patient is stable for discharge. Has been cleared by big machine consultant physicians for discharge. Please refer to chart for any further details. Physician Skip Pitman note has been reviewed by physician. Signing provider agrees with the documented findings, assessment, and plan of care. Patient Condition at Discharge: Stable Plan - Discharge Summary New Discharge Prescriptions: New Piperacillin-Tazobactam [Zosyn] 4.5 gm IVPB Q8HR 14 Days #50 ml Continue lisinopriL [Zestril] 5 mg PO DAILY Varenicline Tartrate 1 mg PO BID Baclofen 10 mg PO TID PRN PRN Reason: Muscle Spasm Ibuprofen [Motrin] 800 mg PO TID-W/MEALS PRN PRN Reason: Pain Acetaminophen Tab [Tylenol] 1,000 mg PO Q6HR PRN PRN Reason: Fever And/ Or Pain Omeprazole 40 mg PO DAILY Atorvastatin [Lipitor] 40 mg PO DAILY Discontinued Levofloxacin [Levaquin] 750 mg PO DAILY 1 Days #10 tab Discharge Medication List Acetaminophen Tab [Tylenol] 1,000 mg PO Q6HR PRN 03/17/23 [History] Atorvastatin [Lipitor] 40 mg PO DAILY 03/17/23 [History] Baclofen 10 mg PO TID PRN 03/17/23 [History] Ibuprofen [Motrin] 800 mg PO TID-W/MEALS PRN 03/17/23 [History] Omeprazole 40 mg PO DAILY 03/17/23 [History] Varenicline Tartrate 1 mg PO BID 03/17/23 [History] lisinopriL [Zestril] 5 mg PO DAILY 03/17/23 [History] Piperacillin-Tazobactam [Zosyn] 4.5 gm IVPB Q8HR 14 Days #50 ml 03/27/23 [Rx] Follow up Appointment(s)/Referral(s): Ha Perez MD [Medical Doctor] - 04/11/23 8:45 am [facility], [NON-STAFF] - 1 Week Zev Cabral MD [Primary Care Provider] - 04/01/23 8:00 am Monico Harrington MD [STAFF PHYSICIAN] - 04/08/23 2:45 pm Patient Instructions/Handouts: Piperacillin/Tazobactam (By injection), Low Fiber Diet (DC), Perforated Bowel (DC), Central Line Associated Bloodstream Infection (DC), How to Care for Your PICC (Peripherally Inserted Central Catheter) (DC) Activity/Diet/Wound Care/Special Instructions: Follow up CT Scan scheduled for 04/08/23. Arrive at 11:30am, scan will be at 1:00. The hospital will call to pre-register prior to appointment. Continue a low fiber diet Antibiotics Per Infectious disease service [employer] - Jeanne Dumont is the salesperson household appliances. Discharge Disposition: HOME WITH HOME HEALTH SERVICES
== END 2023-03-27 18:33 | disposition home health service (06) | DRG 392 ==
LOC: EC 14:01 → 4SSUR 21:42 → 5NMEDONC 03-25 18:28
PROVIDERS: ADMIT Surgery; ATTEND Surgery
PROC: 02HV33Z Insertion of Infusion Device into Superior Vena Cava, Percutaneous Approach (ICD-10-PCS; principal; 2023-03-26 08:35)
DX: K57.20 Diverticulitis of large intestine with perforation and abscess without bleeding (principal); Z68.41 Body mass index [BMI] 40.0-44.9, adult; E66.01 Morbid (severe) obesity due to excess calories; E78.5 Hyperlipidemia, unspecified; F17.210 Nicotine dependence, cigarettes, uncomplicated; G89.29 Other chronic pain; I10 Essential (primary) hypertension; I25.10 Atherosclerotic heart disease of native coronary artery without angina pectoris; K21.9 Gastro-esophageal reflux disease without esophagitis; Z79.899 Other long term (current) drug therapy; M54.50 Low back pain, unspecified; M62.838 Other muscle spasm; N50.812 Left testicular pain
CPT/HCPCS: 36415; 36573; 72192; 74177; 76870; 80048; 80053; 81003; 83605; 83690; 84145; 85025; 85610; 85730; 86850; 86900; 86901; 93975; 96361; 96365; 96375; 96376; 99291

== ENCOUNTER → 2023-04-08 | Outpatient (CLI) | payer OTHER ==
--- NOTE | 2023-04-08 15:06 | CT ---
EXAMINATION TYPE: CT abdomen pelvis w con CT DLP: 404 mGycm, Automated exposure control for dose reduction was used. DATE OF EXAM: 04/08/2023 1:53 PM COMPARISON: CT abdomen pelvis most recent from 03/24/2023. CLINICAL INDICATION:Male, 43 years old with history of K65.1 intra-abdominal abscess; f/u for intra-a bdominal abscess TECHNIQUE: Axial CT of the abdomen and pelvis. Sagittal and coronal reformats were created on a [employer] workstation. Contrast used:100 mL of Isovue 300 with IV Contrast, (none if empty) Oral contrast used: with Oral Contrast (none if empty) FINDINGS: LOWER CHEST: Unremarkable ABDOMEN LIVER: Unremarkable GALLBLADDER AND BILE DUCTS: The gallbladder is surgically absent. PANCREAS: Unremarkable. SPLEEN: Unremarkable. ADRENAL GLANDS: Unremarkable. KIDNEYS AND URETERS: No evidence of hydronephrosis or renal calculus. The ureters are unremarkable. PELVIS BLADDER: Unremarkable REPRODUCTIVE: Unremarkable. ABDOMEN & PELVIS STOMACH AND BOWEL: There is evidence for acute complicated diverticulitis/colitis with free air and o rganizing fluid collection/containing feces measuring 2.9 x 1.5, previously 5.7 x 3.1 on 03/24/2023.. Decrease of fluid within this region as well as peritoneum foci. There remains colonic diverticula an d fat stranding changes in the region. One focus of gas is now visualized. PERITONEUM/RETROPERITONEUM: Scattered foci of pneumoperitoneum are present around the sigmoid colon. Air-fluid lesion described above where there was a perforation. VASCULATURE: No evidence of aortic aneurysm. MUSCULOSKELETAL: No acute osseous abnormalities LYMPH NODES: No gross evidence for lymphadenopathy. SOFT TISSUE/ABDOMINAL WALL: Fat-containing umbilical hernia. IMPRESSION: Improving perforated colitis/diverticulitis with decreased pneumoperitoneum and decreased fluid colle ction/phlegmon change in the area of prior abscess. There remains some mild inflammation changes in t his region on today's exam. Continued attention on follow-up imaging and treatment recommended.
== END | disposition home or self-care (01) ==
LOC: RADPROMAIN 11:15
PROVIDERS: ATTEND Internal Medicine Infectious Disease
DX: K65.1 Peritoneal abscess (principal); K52.9 Noninfective gastroenteritis and colitis, unspecified
CPT/HCPCS: 74177; Q9967

== ENCOUNTER → 2023-05-01 | Outpatient (CLI) | payer OTHER ==
[2023-05-01 10:52] LABS: African American GFR (CKD) >90 (>60 ml/min/1.73 sqM); Blood Urea Nitrogen 16 mg/dL (9-20); Non-African American GFR(CKD) >90 (>60 ml/min/1.73 sqM)
--- NOTE | 2023-05-02 10:28 | CT ---
EXAMINATION TYPE: CT pelvis w con DATE OF EXAM: 05/01/2023 COMPARISON: 04/08/2023 HISTORY: 43-year-old male K57.20 DIVERTICULITIS OF LG INT W PERFORATION TECHNIQUE: Contiguous axial scanning of the pelvis following administration of 100 ml Isovue 300 IV c ontrast. Delayed images through the bladder and coronal/sagittal reconstructions performed. CT DLP: 2048.2 mGycm Automated exposure control for dose reduction was used. FINDINGS: Multiple moderate scattered stool throughout the colon. Normal appendix. Sigmoid diverticulosis redem onstrated. The pericolonic fat stranding show some improvement but there is persistent focal irregula r soft tissue thickening with foci of air within the left paramedian pelvis posterior and superior to the mid sigmoid colon measuring 4.7 x 2.9 cm versus 2.9 x 1.5 cm, previously. Possible fistula tract to the left lateral wall of the distal sigmoid, axial image 27 and coronal image 45. Bladder urine distended. Couple pelvic phlebolith. Otherwise, no abnormal fluid collection in the pel vis or pelvic lymphadenopathy. No dilated small bowel. Bones: Moderate to severe degenerative disc disease L4-L5 with hypertrophic facet arthropathy and gra de 1 retrolisthesis here. Disc osteophyte complex may contribute to a moderate focal spinal canal liz nosis at this level. IMPRESSION: SIGMOID DIVERTICULOSIS WITH IMPROVEMENT IN THE ACUTE INFLAMMATION SEEN ON 04/08/2023. HOWEVER, THERE IS PERSISTENT CONTAINED LEAK characterized by thickened soft tissue and small foci of air in the left paramedian pelvis measuring 4.7 x 2.9 cm. Possible development of a fistula tract to the left latera l wall of the distal sigmoid.
== END | disposition home or self-care (01) ==
LOC: RADPROMAIN 09:46
PROVIDERS: ATTEND Surgery
DX: K57.20 Diverticulitis of large intestine with perforation and abscess without bleeding (principal); K57.30 Diverticulosis of large intestine without perforation or abscess without bleeding
CPT/HCPCS: 82565; 84520; 72193; 36415; Q9967